=== PATIENT | female | born 1940 | race Caucasian/White ===

== ENCOUNTER 2017-06-06 05:57 | Inpatient (IN) | payer MEDICARE, BC ==
[~2017-06-06] VITALS: Ht 147.3 cm; Wt 59.0 kg
[2017-06-06] MEDS ORDERED: LEVO150T8 PO (06:26)
[2017-06-06] MEDS ORDERED: ACET-2154 PO (06:26)
[2017-06-06] MEDS ORDERED: LOPE2CAP PO (06:26)
[2017-06-06] MEDS ORDERED: AMLO5TAB2 PO (06:26)
[2017-06-06] MEDS ORDERED: HYDR-4077 PO (06:26)
[2017-06-06] MEDS ORDERED: QUET25TA PO ×2 (06:26)
[2017-06-06] MEDS ORDERED: PROP80CA PO (06:26)
[2017-06-06] MEDS ORDERED: TRAZ-144 PO (06:26)
[2017-06-06] MEDS ORDERED: CLIN300C11 PO (06:26)
[2017-06-06] MEDS ORDERED: GLIP5TAB13 PO (06:26)
[2017-06-06] MEDS ORDERED: NAPR500T3 PO (06:26)
[2017-06-06] MEDS ORDERED: TIMO5SOL11 OP (06:26)
[2017-06-06] MEDS ORDERED: METF10002 PO (06:26)
[2017-06-06] MEDS ORDERED: ESCI10TA55 PO (06:26)
[2017-06-06] MEDS ORDERED: VALS160T2 PO (06:26)
[2017-06-06] MEDS ORDERED: CHOL500062 PO (06:26)
[2017-06-06] MEDS ORDERED: TRAM50TA2 PO (06:26)
[2017-06-06 06:48] LABS: BASOPHILS # (AUTO) 0.1 K/uL (0.0-8.0); BASOPHILS % (AUTO) 0.7 % (0.0-2.0); EOSINOPHILS # (AUTO) 0.2 K/uL (0.0-0.7); EOSINOPHILS % (AUTO) 2.6 % (0.0-7.0); HEMATOCRIT 35.3 % (37-47); HEMOGLOBIN 11.4 G/DL (12.0-16.0); MEAN CORPUSCULAR HEMOGLOBIN 26.1 UUG (27.0-31.0); MEAN CORPUSCULAR HGB CONC 32 g/dL (32.0-37.0); MEAN CORPUSCULAR VOLUME 81.3 FL (81.0-99.0); MONOCYTES # (AUTO) 0.8 K/UL (0.1-1.30); MONOCYTES % (AUTO) 10.4 % (0.0-11.0); NEUTROPHILS # (AUTO) 5.2 K/UL (1.8-8.9); NEUTROPHILS % (AUTO) 72.3 % (38.5-71.5); PLATELET COUNT (AUTO) 178 K/UL (150-450); RED BLOOD CELL COUNT(AUTO) 4.34 MIL/UL (4.2-5.4); WHITE BLOOD COUNT (AUTO) 7.3 K/UL (4.0-11.2)
[2017-06-06 06:58] LABS: CARBON DIOXIDE 26 mmol/L (21-32); CHLORIDE 104 mmol/L (98-107); CREATININE 0.9 mg/dL (0.6-1.3); GLUCOSE 146 mg/dL (74-106); POTASSIUM 4.2 mmol/L (3.5-5.1); UREA NITROGEN, BLOOD 24 mg/dL (7-18)
--- NOTE | 2017-06-06 07:05 | NUR ---
Recieved Pt in bed, a/o x3,states pain in RT wrist is better.
[2017-06-06 07:07] LABS: ALANINE AMINOTRANSFERASE 18 U/L (14-59); ALKALINE PHOSPHATASE 52 U/L (50-136); ASPARTATE AMINOTRANSFERASE 17 U/L (15-37); BILIRUBIN,DIRECT 0.1 mg/dL (0.0-0.2); BILIRUBIN,TOTAL 0.5 mg/dL (0.2-1.0); TOTAL PROTEIN, SERUM 7.5 g/dL (6.4-8.2)
--- NOTE | 2017-06-06 07:39 | NUR ---
Dr Evans at the bedside for reeval.
[2017-06-06] MEDS ORDERED: ACETAMINOPHEN 325 MG TABLET PO ONE (07:45)
[2017-06-06] MEDS ORDERED: ACETAMINOPHEN ES 500 MG TABLET ONE (08:00)
--- NOTE | 2017-06-06 08:50 | NUR ---
MRSA COLLECTED AND SENT TO LAB. BELONGING LIST COMPLETED.
--- NOTE | 2017-06-06 09:03 | NUR ---
BEV CARL spoke to DR Bower(neuro surgeon).
[2017-06-06 09:50] VITALS: BP 144/70
--- NOTE | 2017-06-06 09:50 | NUR ---
received from ER per jina awake alert and oriented, with david bandage wrapped on right wrist, some swelling noted on fingers but warm to touch, kept elevated on pillow, sitting on chair, routine admission care rendered, tele applied, SR 78, initial assessment done
--- NOTE | 2017-06-06 12:00 | NUR ---
appetite fair, up to BR earlier and urine sent to lab
[2017-06-06] MEDS ORDERED: MORPHINE SULFATE 2 MG/1 ML DISP.SYRIN IV PRN (12:15)
[2017-06-06] MEDS ORDERED: QUETIAPINE FUMARATE 25 MG TABLET PO PRN (12:30)
[2017-06-06] MEDS ORDERED: ACETAMINOPHEN 325 MG TABLET PO PRN (12:30)
[2017-06-06] MEDS ORDERED: DEXTROSE 50% 50 ML DISP.SYRIN IV PRN (12:30)
[2017-06-06] MEDS ORDERED: ONDANSETRON 4 MG/2 ML VIAL IV PRN (12:30)
[2017-06-06] MEDS: AMLODIPINE 5 MG TABLET PO SCH ×2 (13:10→16:20)
[2017-06-06] MEDS: ESCITALOPRAM OXALATE 10 MG TABLET PO SCH (13:10)
[2017-06-06] MEDS: glipiZIDE 5 MG TABLET PO SCH (13:10)
[2017-06-06] MEDS: TRAMADOL HCL 50 MG TABLET PO PRN ×2 (13:11→22:12)
[2017-06-06 15:03] LABS: *BILIRUBIN,URIN NEGATIVE (NEGATIVE); *BLOOD, URINE NEGATIVE (NEGATIVE); *COLOR,URINE YELLOW (YELLOW); *KETONES,URINE NEGATIVE (NEGATIVE); *PROTEIN,URINE 2+ (NEGATIVE); *UROBILINOGEN,URINE 0.2 E.U./dl (NORMAL); LEUKOCYTE ESTERASE ,URINE TRACE (NEGATIVE); NITRITE, URINE NEGATIVE (NEGATIVE); PH,URINE 5.5 (5.0-8.0); UGLUCOSE TRACE (NEGATIVE)
[2017-06-06 16:10] VITALS: BP 153/71
[2017-06-06] MEDS: BLOOD SUGAR DIAGNOSTIC 1 EACH STRIP VI SCH ×2 (16:14→21:51)
[2017-06-06 16:20] LABS: *CLARITY,URINE HAZY (CLEAR)
[2017-06-06] MEDS: VALSARTAN 160 MG TABLET PO SCH (16:20)
[2017-06-06] MEDS: NAPROXEN 500 MG TABLET PO SCH (16:20)
[2017-06-06 16:23] LABS: BACTERIA,URINE MANY /HPF (NONE SEEN); SQUAMOUS EPITHELIAL CELL,UR FEW /HPF (NONE SEEN)
--- NOTE | 2017-06-06 16:24 | NUR ---
BS 192- refused sliding scale insulin sq
[2017-06-06] MEDS ORDERED: Medication Not On Formulary EA (Metformin Hcl 1,000 MG) PO SCH (17:00)
[2017-06-06] MEDS: METFORMIN HCL 500 MG TABLET PO SCH (17:29)
--- NOTE | 2017-06-06 17:41 | NUR ---
sitting on bedside chair, right arm elevated on pillow with david bandage- ice pack on, states pain lesser, all needs attended and met, medicated earlier with Seroquel for anxiety, 2dech and us carotid done earlier, refused DVT pumps at this time
[2017-06-06 20:00] VITALS: BP 126/59
--- NOTE | 2017-06-06 21:22 | NUR ---
PT'S ACCUCHECK READING 67. PT IS ALERT, IN NO ACUTE DISTRESS, NO C/O OF DISCOMFORT, NO S/S OF HYPOGLYCEMIA NOTED. GAVE PATIENT SNACKS AND JUICE. WILL REASSESS AND MONITOR.
[2017-06-06] MEDS: QUETIAPINE FUMARATE 25 MG TABLET PO SCH (21:24)
[2017-06-06] MEDS: TRAZODONE 50 MG TABLET PO SCH (21:25)
--- NOTE | 2017-06-06 21:50 | NUR ---
RECHECKED ACCUCHECK, BLOOD SUGAR READING 105. PT IS ALERT, NO RESPIRATORY DISTRESS. SAFETY MEASURES IN PLACE, CALL LIGHT WITHIN REACH, BED ALARM ON. WILL CONTINUE TO MONITOR.
[2017-06-06] MEDS ORDERED: CEFTRIAXONE 1 G in IV DEXTROSE 5% 50 ML IV SCH (23:00)
[2017-06-07] VITALS: BP 97/42
[2017-06-07] MEDS ORDERED: CEFTRIAXONE 1 G VIAL ONE (00:14)
[2017-06-07 04:00] VITALS: BP 162/75
--- NOTE | 2017-06-07 04:25 | NUR ---
PT KEPT NPO AFTER MIDNIGHT FOR PLANNED RIGHT WRIST SURGERY. CALLED DR. TA FOR IVF ORDER. NEW ORDERS TAKEN, READ BACK DONE AND CARRIED OUT.
[2017-06-07] MEDS: IV NS 1000 ML 1,000 ML IV PRN (04:54)
--- NOTE | 2017-06-07 06:00 | NUR ---
PT SLEPT WELL, IN NO ACUTE DISTRESS. ANTIBIOTIC IV ADMINISTERED ORDERED. ASSISTED PATIENT WITH TOILETING NEEDS. AMBULATES W/UNSTEADY GAIT AND W/ASSISTANCE TO THE BATHROOM. CALL LIGHT WITHIN REACH, BED ALARM ON. WILL CONTINUE TO MONITOR.
[2017-06-07 06:43] LABS: THYROID STIMULATING HORMONE 0.307 mIU/mL (0.358-3.740)
[2017-06-07 06:54] LABS: IRON, SERUM 39 ug/dL (50-175)
[2017-06-07 07:00] LABS: ALANINE AMINOTRANSFERASE 54 U/L (14-59); ALKALINE PHOSPHATASE 97 U/L (50-136); ASPARTATE AMINOTRANSFERASE 94 U/L (15-37); BILIRUBIN,TOTAL 0.4 mg/dL (0.2-1.0); CARBON DIOXIDE 26 mmol/L (21-32); CHLORIDE 104 mmol/L (98-107); CHOLESTEROL 181 mg/dL (<200); CREATININE 1.1 mg/dL (0.6-1.3); GLUCOSE 93 mg/dL (74-106); HDL CHOLESTEROL 48 mg/dL (40-60); MAGNESIUM 1.3 mg/dL (1.8-2.4); PHOSPHOROUS 4.7 mg/dL (2.5-4.9); POTASSIUM 4.1 mmol/L (3.5-5.1); TOTAL PROTEIN, SERUM 7.1 g/dL (6.4-8.2); TRIGLYCERIDES 99 MG/DL (30-150); UREA NITROGEN, BLOOD 33 mg/dL (7-18)
[2017-06-07] MEDS: PANTOPRAZOLE SODIUM 40 MG TABLET.DR PO SCH (07:00)
[2017-06-07] MEDS: LEVOTHYROXINE SODIUM 150 MCG TABLET PO SCH (07:00)
[2017-06-07] MEDS: PROPRANOLOL HCL 40 MG TABLET PO SCH ×3 (07:03→22:14)
[2017-06-07] MEDS: BLOOD SUGAR DIAGNOSTIC 1 EACH STRIP VI SCH ×4 (07:03→22:00)
[2017-06-07 07:15] LABS: BASOPHILS % (AUTO) 0.1 % (0.0-2.0); EOSINOPHILS # (AUTO) 0.2 K/uL (0.0-0.7); EOSINOPHILS % (AUTO) 2.6 % (0.0-7.0); HEMATOCRIT 34.1 % (37-47); HEMOGLOBIN 11.1 G/DL (12.0-16.0); LYMPHOCYTES % (AUTO) 15.4 % (20.5-51.5); MEAN CORPUSCULAR HGB CONC 33 g/dL (32.0-37.0); MEAN CORPUSCULAR VOLUME 82.7 FL (81.0-99.0); MONOCYTES # (AUTO) 0.7 K/UL (0.1-1.30); MONOCYTES % (AUTO) 11.4 % (0.0-11.0); NEUTROPHILS # (AUTO) 4.4 K/UL (1.8-8.9); NEUTROPHILS % (AUTO) 70.5 % (38.5-71.5); PLATELET COUNT (AUTO) 171 K/UL (150-450); RED BLOOD CELL COUNT(AUTO) 4.13 MIL/UL (4.2-5.4); WHITE BLOOD COUNT (AUTO) 6.3 K/UL (4.0-11.2)
[2017-06-07] MEDS: METFORMIN HCL 500 MG TABLET PO SCH ×2 (08:00→17:39)
--- NOTE | 2017-06-07 08:00 | NUR ---
Awake, alert, oriented x 4. Right arm with splint. Assisted to the bathroom. am care done then sitting on the chair. IVF infusing. NPO reinstructed and maintained.
[2017-06-07] MEDS: MORPHINE SULFATE 2 MG/1 ML DISP.SYRIN IV PRN ×2 (08:59→16:36)
--- NOTE | 2017-06-07 08:59 | NUR ---
Complained of pain right arm, explained about NPO, agreed with Morphine IV, given.
[2017-06-07] MEDS: CHOLECALCIFEROL 1,000 UNIT TABLET PO SCH (09:00)
[2017-06-07] MEDS: VALSARTAN 160 MG TABLET PO SCH ×2 (09:00→16:36)
[2017-06-07] MEDS: ESCITALOPRAM OXALATE 10 MG TABLET PO SCH (09:00)
[2017-06-07] MEDS: TIMOLOL MALEATE XE 0.5% OPHT 5 ML BOTTLE EACHEYE SCH (09:00)
[2017-06-07] MEDS: AMLODIPINE 5 MG TABLET PO SCH ×2 (09:00→16:35)
[2017-06-07] MEDS: NAPROXEN 500 MG TABLET PO SCH ×2 (09:00→16:33)
[2017-06-07] MEDS ORDERED: Medication Not On Formulary EA (Cholecalciferol (Vitamin D3) (Vitamin D3) 1,000 UNIT) PO SCH (09:00)
[2017-06-07] MEDS: glipiZIDE 5 MG TABLET PO SCH (09:00)
[2017-06-07 11:34] VITALS: BP 140/90
[2017-06-07] MEDS ORDERED: POLYMYXIN B SULFATE 500,000 UNITS, BACITRACIN 50,000 UNITS, NORMAL SALINE 20 ML MC ONE ×6 (12:30→15:15)
--- NOTE | 2017-06-07 14:00 | NUR ---
Called Dr. Blum, with orders for ORIF right radius. Consent signed by patient.
--- NOTE | 2017-06-07 14:52 | NUR ---
To OR by bed, with eyeglasses and bilateral hearing aids on.
[2017-06-07] MEDS ORDERED: BUPIVACAINE 0.25% 30 ML VIAL ONE (15:18)
[2017-06-07 15:31] VITALS: BP 152/77
--- NOTE | 2017-06-07 16:30 | NUR ---
Transferred back to room. Surgery not done, rescheduled. Vital signs taken and recorded. IVF resumed. Early dinner called. Due medications given. Prefers to sit on the chair
[2017-06-07] MEDS: MAGNESIUM SULFATE/D5W 100 ML IV SCH ×4 (16:33→23:15)
--- NOTE | 2017-06-07 18:26 | NUR ---
Pain relieved. With fair appetite. Magnesium IV infusing. Endorsed for further care
[2017-06-07 19:52] VITALS: BP 130/54
[2017-06-07] MEDS: QUETIAPINE FUMARATE 25 MG TABLET PO SCH (21:59)
[2017-06-07] MEDS: TRAZODONE 50 MG TABLET PO SCH (21:59)
[2017-06-07] MEDS: CEFTRIAXONE 1 G in IV DEXTROSE 5% 50 ML IV SCH (22:02)
[2017-06-07] MEDS: INSULIN REGULAR, HUMAN 300 UNIT/3 ML VIAL SQ PRN (22:25)
[2017-06-08] MEDS: IV NS 1000 ML 1,000 ML IV PRN ×2 (03:55→21:20)
[2017-06-08 04:12] VITALS: BP 122/61
[2017-06-08] MEDS: PROPRANOLOL HCL 40 MG TABLET PO SCH ×3 (05:08→21:18)
[2017-06-08] MEDS: MORPHINE SULFATE 2 MG/1 ML DISP.SYRIN IV PRN ×2 (05:16→10:11)
--- NOTE | 2017-06-08 06:27 | NUR ---
PT SLEPT WELL, IN NO ACUTE DISTRESS, SOB, CHEST PAIN. IVF RUNNING, NO INFILTRATION NOTED. IV ANTIBIOTICS ADMINISTERED ORDERED, NO ADVERSE REACTION. ACCUCHECKS ORDERED, NO S/S OF HYPO/HYPERGLYCEMIA NOTED. SAFETY MEASURES IN PLACE, CALL LIGHT WITHIN REACH, BED ALARM ON. WILL CONTINUE TO MONITOR.
[2017-06-08] MEDS: BLOOD SUGAR DIAGNOSTIC 1 EACH STRIP VI SCH ×4 (06:36→21:27)
[2017-06-08 06:47] LABS: BASOPHILS % (AUTO) 0.8 % (0.0-2.0); EOSINOPHILS # (AUTO) 0.2 K/uL (0.0-0.7); HEMATOCRIT 34.2 % (37-47); HEMOGLOBIN 11.2 G/DL (12.0-16.0); LYMPHOCYTES # (AUTO) 0.7 K/UL (0.8-4.8); LYMPHOCYTES % (AUTO) 17.6 % (20.5-51.5); MEAN CORPUSCULAR HEMOGLOBIN 26.8 UUG (27.0-31.0); MEAN CORPUSCULAR HGB CONC 33 g/dL (32.0-37.0); MONOCYTES # (AUTO) 0.5 K/UL (0.1-1.30); NEUTROPHILS # (AUTO) 2.8 K/UL (1.8-8.9); NEUTROPHILS % (AUTO) 64.6 % (38.5-71.5); PLATELET COUNT (AUTO) 163 K/UL (150-450); RED BLOOD CELL COUNT(AUTO) 4.16 MIL/UL (4.2-5.4); WHITE BLOOD COUNT (AUTO) 4.2 K/UL (4.0-11.2)
[2017-06-08 06:57] LABS: ALANINE AMINOTRANSFERASE 678 U/L (14-59); ALKALINE PHOSPHATASE 252 U/L (50-136); ASPARTATE AMINOTRANSFERASE 649 U/L (15-37); BILIRUBIN,TOTAL 0.4 mg/dL (0.2-1.0); CARBON DIOXIDE 25 mmol/L (21-32); CHLORIDE 105 mmol/L (98-107); CREATININE 0.8 mg/dL (0.6-1.3); GLUCOSE 123 mg/dL (74-106); MAGNESIUM 2.6 mg/dL (1.8-2.4); PHOSPHOROUS 4.5 mg/dL (2.5-4.9); POTASSIUM 4.2 mmol/L (3.5-5.1); TOTAL PROTEIN, SERUM 7.2 g/dL (6.4-8.2); UREA NITROGEN, BLOOD 29 mg/dL (7-18)
[2017-06-08] MEDS: LEVOTHYROXINE SODIUM 150 MCG TABLET PO SCH (07:00)
[2017-06-08] MEDS: PANTOPRAZOLE SODIUM 40 MG TABLET.DR PO SCH (07:00)
[2017-06-08] MEDS: METFORMIN HCL 500 MG TABLET PO SCH ×2 (08:00→17:36)
--- NOTE | 2017-06-08 08:00 | NUR ---
Sleeping, comfortable. IVF infusing. NPO maintained.
[2017-06-08] MEDS: ESCITALOPRAM OXALATE 10 MG TABLET PO SCH (08:46)
[2017-06-08] MEDS: AMLODIPINE 5 MG TABLET PO SCH ×2 (08:46→16:01)
[2017-06-08] MEDS: VALSARTAN 160 MG TABLET PO SCH ×2 (08:46→16:01)
[2017-06-08] MEDS: NAPROXEN 500 MG TABLET PO SCH ×2 (08:46→17:36)
[2017-06-08] MEDS: glipiZIDE 5 MG TABLET PO SCH (08:46)
[2017-06-08] MEDS: CHOLECALCIFEROL 1,000 UNIT TABLET PO SCH (08:47)
[2017-06-08] MEDS: TIMOLOL MALEATE XE 0.5% OPHT 5 ML BOTTLE EACHEYE SCH (10:12)
[2017-06-08 11:56] VITALS: BP 169/61
[2017-06-08] MEDS ORDERED: POLYMYXIN B SULFATE 500,000 UNITS, BACITRACIN 50,000 UNITS, NORMAL SALINE 20 ML MC ONE ×3 (12:30)
--- NOTE | 2017-06-08 12:30 | NUR ---
To OR by bed.
[2017-06-08] MEDS ORDERED: FENTANYL CITRATE 100 MCG/2 ML AMPUL ONE (12:52)
[2017-06-08] MEDS ORDERED: BUPIVACAINE 0.25% 30 ML VIAL ONE (13:46)
[2017-06-08] MEDS ORDERED: ONDANSETRON 4 MG/2 ML VIAL ONE (15:05)
[2017-06-08] MEDS ORDERED: HYDROMORPHONE 1 MG/1 ML DISP.SYRIN ONE (15:05)
--- NOTE | 2017-06-08 15:49 | NUR ---
Received from recovery by bed s/p ORIF distal right radius. RUE with dressing dry and intact supported with sling and elevated over pillow. Able to move fingers,warm touch, denies numbness/tingling. Vital signs taken and recorded. IVF infusing. Noted elevated BP, will give BP medications
[2017-06-08 15:50] VITALS: BP 180/72
--- NOTE | 2017-06-08 16:38 | NUR ---
Assisted to the bathroom, voided freely.
[2017-06-08 16:41] VITALS: BP 166/64
--- NOTE | 2017-06-08 18:08 | NUR ---
Sitting on the chair eating dinner. Kept dry and comfortable
[2017-06-08 19:00] VITALS: BP 164/63
--- NOTE | 2017-06-08 20:00 | NUR ---
NSG: PT RECEIVED SITTING ON THE CHAIR. DENIES DISCOMFORT AT THIS TIME. RIGHT ARM WITH CAST, WEARS SLING. ON CONT IVF. EDUCATED REGARDING FALL PRECAUTION. CALL LIGHT WITHIN REACH.
--- NOTE | 2017-06-08 20:45 | NUR ---
NSG: PT ASSISTED BACK TO BED.
[2017-06-08] MEDS: TRAZODONE 50 MG TABLET PO SCH (21:16)
[2017-06-08] MEDS: QUETIAPINE FUMARATE 25 MG TABLET PO SCH (21:17)
[2017-06-08] MEDS: CEFTRIAXONE 1 G in IV DEXTROSE 5% 50 ML IV SCH (21:19)
[2017-06-08] MEDS: MORPHINE SULFATE 4 MG/1 ML DISP.SYRIN IV PRN (21:23)
--- NOTE | 2017-06-08 21:33 | NUR ---
nsg: acu ck is 139, pt refused insulin coverage.
[2017-06-08] MEDS ORDERED: LIDOCAINE-MPF 2% 5 ML VIAL MC ONE (21:42)
[2017-06-08] MEDS ORDERED: ONDANSETRON 4 MG/2 ML VIAL IV ONE (21:42)
[2017-06-08] MEDS ORDERED: CEFAZOLIN 1 G VIAL MC ONE (21:42)
[2017-06-08] MEDS ORDERED: IV LACTATED RINGERS SOLUTION 1,000 ML BAG IV ONE (21:42)
[2017-06-08] MEDS ORDERED: PROPOFOL 200 MG/20 ML BOTTLE IV ONE (21:42)
[2017-06-08] MEDS ORDERED: EPHEDRINE SULFATE 50 MG/ML AMPUL MC ONE (21:42)
[2017-06-08] MEDS ORDERED: CLONIDINE HCL 0.1 MG TABLET PO PRN (22:30)
--- NOTE | 2017-06-09 00:48 | NUR ---
NSG: Patient alert and oriented x4. Able to make needs known. No acute distress noted. Breathing even and unlabored with normal respirations. Pt has right arm cast, no tingling/numbness noted. Capillary refill WNL. Complained of right wrist pain, medicated with morphine. Relief noted. Will continue to monitor.
[2017-06-09 04:00] VITALS: BP 127/64
[2017-06-09 06:35] VITALS: BP 154/75
[2017-06-09 06:42] LABS: ALANINE AMINOTRANSFERASE 727 U/L (14-59); ALKALINE PHOSPHATASE 282 U/L (50-136); ASPARTATE AMINOTRANSFERASE 471 U/L (15-37); BILIRUBIN,TOTAL 0.7 mg/dL (0.2-1.0); CARBON DIOXIDE 24 mmol/L (21-32); CHLORIDE 105 mmol/L (98-107); CREATININE 0.7 mg/dL (0.6-1.3); GLUCOSE 134 mg/dL (74-106); MAGNESIUM 1.4 mg/dL (1.8-2.4); PHOSPHOROUS 3.3 mg/dL (2.5-4.9); POTASSIUM 4.3 mmol/L (3.5-5.1); TOTAL PROTEIN, SERUM 6.9 g/dL (6.4-8.2); UREA NITROGEN, BLOOD 17 mg/dL (7-18)
[2017-06-09] MEDS: PANTOPRAZOLE SODIUM 40 MG TABLET.DR PO SCH (06:51)
[2017-06-09] MEDS: PROPRANOLOL HCL 40 MG TABLET PO SCH ×3 (06:51→21:21)
[2017-06-09] MEDS: LEVOTHYROXINE SODIUM 150 MCG TABLET PO SCH (06:51)
[2017-06-09] MEDS: MORPHINE SULFATE 4 MG/1 ML DISP.SYRIN IV PRN (06:52)
[2017-06-09 06:56] LABS: BASOPHILS % (AUTO) 0.6 % (0.0-2.0); EOSINOPHILS # (AUTO) 0.2 K/uL (0.0-0.7); EOSINOPHILS % (AUTO) 3.5 % (0.0-7.0); HEMATOCRIT 32.2 % (37-47); HEMOGLOBIN 10.6 G/DL (12.0-16.0); LYMPHOCYTES # (AUTO) 0.8 K/UL (0.8-4.8); LYMPHOCYTES % (AUTO) 15.9 % (20.5-51.5); MEAN CORPUSCULAR HGB CONC 33 g/dL (32.0-37.0); MEAN CORPUSCULAR VOLUME 81.8 FL (81.0-99.0); MONOCYTES # (AUTO) 0.7 K/UL (0.1-1.30); MONOCYTES % (AUTO) 14.4 % (0.0-11.0); NEUTROPHILS # (AUTO) 3.1 K/UL (1.8-8.9); NEUTROPHILS % (AUTO) 65.6 % (38.5-71.5); RED BLOOD CELL COUNT(AUTO) 3.94 MIL/UL (4.2-5.4); WHITE BLOOD COUNT (AUTO) 4.8 K/UL (4.0-11.2)
[2017-06-09] MEDS: BLOOD SUGAR DIAGNOSTIC 1 EACH STRIP VI SCH ×4 (07:06→20:41)
[2017-06-09 07:19] LABS: PLATELET COUNT (AUTO) 158 K/UL (150-450)
--- NOTE | 2017-06-09 08:00 | NUR ---
Received patient awake in bed, verbally responsive, coherent, not in any form of acute distress. She denies any pain or discomfort at this time. Call light placed within reach.
[2017-06-09] MEDS: glipiZIDE 5 MG TABLET PO SCH (09:24)
[2017-06-09] MEDS: NAPROXEN 500 MG TABLET PO SCH ×2 (09:24→17:49)
[2017-06-09] MEDS: VALSARTAN 160 MG TABLET PO SCH ×2 (09:25→17:50)
[2017-06-09] MEDS: AMLODIPINE 5 MG TABLET PO SCH ×2 (09:25→17:49)
[2017-06-09] MEDS: CHOLECALCIFEROL 1,000 UNIT TABLET PO SCH (09:26)
[2017-06-09] MEDS: METFORMIN HCL 500 MG TABLET PO SCH ×2 (09:26→17:50)
[2017-06-09] MEDS: ESCITALOPRAM OXALATE 10 MG TABLET PO SCH (09:26)
[2017-06-09] MEDS: TIMOLOL MALEATE XE 0.5% OPHT 5 ML BOTTLE EACHEYE SCH (09:27)
[2017-06-09] MEDS ORDERED: MAGNESIUM OXIDE 400 MG TABLET PO ONE (09:30)
--- NOTE | 2017-06-09 10:00 | NUR ---
Assisted patient to the bathroom and she voided freely.
[2017-06-09 11:16] VITALS: BP 165/54
[2017-06-09] MEDS: IV NS 1000 ML 1,000 ML IV PRN (11:43)
[2017-06-09] MEDS: HYDROCODONE/APAP 10-325 MG TABLET PO PRN (11:49)
--- NOTE | 2017-06-09 11:50 | NUR ---
Patient complained of 9/10 pain on the right wrist, offered morphine IV but patient refused and patient preferred to take Warner tab.
[2017-06-09 16:04] VITALS: BP 157/61
--- NOTE | 2017-06-09 17:30 | NUR ---
Patient noted with BS at 55, she remains alert, verbally responsive, coherent, not in any form of acute distress. She denies any discomfort. Provided orange juice and repeat BS done 72. Notified MD with no new order at this time.
[2017-06-09 19:00] VITALS: BP 144/69
--- NOTE | 2017-06-09 19:00 | NUR ---
RECEIVED PATIENT IN BED, NO SOB NO CHEST PAIN, NO COMPLAIN OF PAIN, NO COUGHING NOTED, ASSISTED WITH TOILETING, CONT TO MONITOR.
[2017-06-09] MEDS: TRAZODONE 50 MG TABLET PO SCH (20:31)
[2017-06-09] MEDS: QUETIAPINE FUMARATE 25 MG TABLET PO SCH (20:32)
[2017-06-09] MEDS: CEFTRIAXONE 1 G in IV DEXTROSE 5% 50 ML IV SCH (20:41)
[2017-06-09] MEDS: INSULIN REGULAR, HUMAN 300 UNIT/3 ML VIAL SQ PRN (20:44)
[2017-06-10] MEDS: IV NS 1000 ML 1,000 ML IV PRN (01:07)
[2017-06-10 04:58] VITALS: BP 150/73
[2017-06-10] MEDS: BLOOD SUGAR DIAGNOSTIC 1 EACH STRIP VI SCH ×4 (05:47→20:11)
[2017-06-10] MEDS: LEVOTHYROXINE SODIUM 150 MCG TABLET PO SCH (05:50)
[2017-06-10] MEDS: PANTOPRAZOLE SODIUM 40 MG TABLET.DR PO SCH (05:51)
[2017-06-10] MEDS: PROPRANOLOL HCL 40 MG TABLET PO SCH ×2 (06:00→14:01)
--- NOTE | 2017-06-10 06:42 | NUR ---
PATIENT SLEPT MOST OF THE NIGHT, NO SOB NO CHEST PAIN, R HAND/ARM CAST INTACT, SKIN COLOR WNL, NO COMPLAIN OF PAIN AT THIS TIME, ASSISTED WITH TOILETING, CONTINENT OF BOWEL AND BLADDER, CONT TO MONITOR. BS 99.
[2017-06-10 09:00] VITALS: BP 156/78
--- NOTE | 2017-06-10 09:00 | NUR ---
ASSUMED CARE OF PT, HEAD TO TOE DONE, C/O PAIN 06/14-NORCO GIVEN ORDERED. FALL PRECAUTIONS IN PLACE. WILL CONTINUE TO MONITOR.
[2017-06-10] MEDS: ESCITALOPRAM OXALATE 10 MG TABLET PO SCH (09:14)
[2017-06-10] MEDS: METFORMIN HCL 500 MG TABLET PO SCH ×2 (09:14→17:32)
[2017-06-10] MEDS: NAPROXEN 500 MG TABLET PO SCH ×2 (09:14→17:32)
[2017-06-10] MEDS: VALSARTAN 160 MG TABLET PO SCH ×2 (09:15→17:32)
[2017-06-10] MEDS: CHOLECALCIFEROL 1,000 UNIT TABLET PO SCH (09:15)
[2017-06-10] MEDS: AMLODIPINE 5 MG TABLET PO SCH ×2 (09:15→17:32)
[2017-06-10] MEDS: glipiZIDE 5 MG TABLET PO SCH (09:15)
[2017-06-10] MEDS: HYDROCODONE/APAP 10-325 MG TABLET PO PRN ×2 (09:16→18:47)
[2017-06-10] MEDS: TIMOLOL MALEATE XE 0.5% OPHT 5 ML BOTTLE EACHEYE SCH (09:23)
[2017-06-10 11:41] VITALS: BP 159/69
[2017-06-10] MEDS: INSULIN REGULAR, HUMAN 300 UNIT/3 ML VIAL SQ PRN ×2 (12:45→17:33)
[2017-06-10 16:07] VITALS: BP 136/52
[2017-06-10] MEDS ORDERED: HYDR-4076 PO (16:24)
[2017-06-10] MEDS ORDERED: ACET325T53 PO (16:24)
[2017-06-10] MEDS ORDERED: PANT40TA2 PO (16:24)
[2017-06-10] MEDS ORDERED: DEXT50DI8 IV (16:24)
[2017-06-10] MEDS ORDERED: Blood Sugar Diagnostic VI (16:24)
[2017-06-10] MEDS ORDERED: HYDR-3326 PO (16:24)
[2017-06-10] MEDS ORDERED: GLIP5TAB13 PO (16:24)
[2017-06-10] MEDS ORDERED: CLON0.1T14 PO (16:24)
[2017-06-10] MEDS ORDERED: MULT1TAB73 PO (16:24)
[2017-06-10 17:32] VITALS: BP 153/70
--- NOTE | 2017-06-10 19:51 | NUR ---
RN HAND OFF GIVEN TO INDRA. PT IS IN STABLE CONDITION. WAITING TO BE TRANSFERRED TO REHAB
[2017-06-10] MEDS: CEFTRIAXONE 1 G in IV DEXTROSE 5% 50 ML IV SCH (20:10)
[2017-06-10] MEDS: TRAZODONE 50 MG TABLET PO SCH (20:11)
[2017-06-10] MEDS: QUETIAPINE FUMARATE 25 MG TABLET PO SCH (20:11)
--- NOTE | 2017-06-10 21:30 | NUR ---
PT TRANSFERRED TO ACUTE REHAB. PT ALERT, VS STABLE, AFEBRILE. BELONGING LIST RECORDED AND ACCOUNTED FOR, SIGNED AND ACKNOWLEDGED BY PT. D/C DOCUMENTATION SENT WITH PATIENT. REPORT GIVEN TO ARUN HEARN.
[2017-06-15 10:34] LABS: CARBON DIOXIDE 29 mmol/L (21-32); CHLORIDE 101 mmol/L (98-107); CREATININE 0.9 mg/dL (0.6-1.3); GLUCOSE 161 mg/dL (74-106); UREA NITROGEN, BLOOD 30 mg/dL (7-18)
[2017-06-15 10:51] LABS: BASOPHILS % (AUTO) 0.4 % (0.0-2.0); EOSINOPHILS # (AUTO) 0.2 K/uL (0.0-0.7); EOSINOPHILS % (AUTO) 2.2 % (0.0-7.0); HEMATOCRIT 36.8 % (37-47); LYMPHOCYTES # (AUTO) 1.4 K/UL (0.8-4.8); MEAN CORPUSCULAR HEMOGLOBIN 26.6 UUG (27.0-31.0); MEAN CORPUSCULAR HGB CONC 33 g/dL (32.0-37.0); MEAN CORPUSCULAR VOLUME 81.8 FL (81.0-99.0); MONOCYTES # (AUTO) 0.9 K/UL (0.1-1.30); MONOCYTES % (AUTO) 9.8 % (0.0-11.0); NEUTROPHILS # (AUTO) 6.3 K/UL (1.8-8.9); NEUTROPHILS % (AUTO) 71.6 % (38.5-71.5); PLATELET COUNT (AUTO) 253 K/UL (150-450)
[2017-06-15 11:21] LABS: WHITE BLOOD COUNT (AUTO) 8.8 K/UL (4.0-11.2)
== END 2017-06-10 21:43 | DRG 982 ==
LOC: EDBD → ER 06:04 → TELE 09:27 → MED 06-07 23:58
PROVIDERS: ADMIT Internal Medicine; ATTEND Internal Medicine
PROC: 0PSH04Z Reposition Right Radius with Internal Fixation Device, Open Approach (ICD-10-PCS; principal; 2017-06-08 13:16)
DX: G90.8 Other disorders of autonomic nervous system (principal); M80.831A Other osteoporosis with current pathological fracture, right forearm, initial encounter for fracture; T85.01XA Breakdown (mechanical) of ventricular intracranial (communicating) shunt, initial encounter; N39.0 Urinary tract infection, site not specified; D68.59 Other primary thrombophilia; I50.32 Chronic diastolic (congestive) heart failure; R55 Syncope and collapse; I11.0 Hypertensive heart disease with heart failure; E89.0 Postprocedural hypothyroidism; Z91.81 History of falling; Z79.899 Other long term (current) drug therapy; B96.89 Other specified bacterial agents as the cause of diseases classified elsewhere; Z86.011 Personal history of benign neoplasm of the brain; Z96.641 Presence of right artificial hip joint; Z87.891 Personal history of nicotine dependence; Z90.49 Acquired absence of other specified parts of digestive tract; Z74.09 Other reduced mobility; E11.65 Type 2 diabetes mellitus with hyperglycemia; Z79.84 Long term (current) use of oral hypoglycemic drugs; R26.81 Unsteadiness on feet; Z98.2 Presence of cerebrospinal fluid drainage device; R74.0 Nonspecific elevation of levels of transaminase and lactic acid dehydrogenase [LDH]; F32.9 Major depressive disorder, single episode, unspecified; D50.9 Iron deficiency anemia, unspecified
CPT/HCPCS: 36415; 70030-TC; 70450; 71010; 73100; 73110; 76000; 82306; 83550; 83605; 83690; 83735; 84100; 84443; 85025; 85730; 87040; 87077; 87086; 93005; 93307; 93880; 95819; 97116; 97161; 97165; 97530; 97535; A4663; J0690; J0696; J1170; J1815; J2270; J2405; J3010; J3475; J3490; J3590; J7030; J7040; J7060; J7120

== ENCOUNTER 2017-06-10 23:10 | Inpatient (IN) | payer MEDICARE, BC ==
[~2017-06-10] VITALS: Ht 147.3 cm; Wt 59.0 kg
--- NOTE | 2017-06-10 21:25 | NUR ---
PATIENT ADMITTED IN ACUTE REHAB UNDER THE CARE OF Rosalie MCCARTNEY, BELONGINGS LIST DONE, ALERT, ORIENTED, NO SOB NO CHEST PAIN, NO COMPLAIN OF PAIN, RIGHT ARM WITH CAST ON THE SLING, RIGHT ARM WITH SWELLING AND BRUISES, ALSO BILATERAL FEET WITH PITTING EDEMA, CALL LIGHT WITHIN REACH, KEPT COMFORTABLE.
[~2017-06-10 23:10] MED LIST: ACET-2154 PO; ACET325T53 PO; AMLO5TAB2 PO; Blood Sugar Diagnostic VI; CHOL500062 PO; CLIN300C11 PO; CLON0.1T14 PO; DEXT50DI8 IV; ESCI10TA55 PO; GLIP5TAB13 PO; HYDR-3326 PO; HYDR-4076 PO; HYDR-4077 PO; LEVO150T8 PO; LOPE2CAP PO; METF10002 PO; MULT1TAB73 PO; NAPR500T3 PO; PANT40TA2 PO; PROP80CA PO; QUET25TA PO; TIMO5SOL11 OP; TRAM50TA2 PO; TRAZ-144 PO; VALS160T2 PO
[2017-06-11 00:19] VITALS: BP 144/72
[2017-06-11] MEDS ORDERED: DEXTROSE 50% 50 ML DISP.SYRIN IV PRN ×3 (04:00→10:45)
[2017-06-11] MEDS: BLOOD SUGAR DIAGNOSTIC 1 EACH STRIP VI SCH ×4 (05:58→20:41)
--- NOTE | 2017-06-11 06:54 | NUR ---
PATIENT SLEPT MOST OF THE NIGHT, NO SOB NO CHEST PAIN, COMPLAIN OF MILD PAIN OF R HAND, ASSISTED WITH TOILETING, SLING IN PLACE, CONT TO MONITOR.
[2017-06-11 08:00] VITALS: BP 167/76
--- NOTE | 2017-06-11 08:00 | NUR ---
Received patient awake, up on the chair, alert, verbally responsive, able to make needs known, not in any form of acute distress. She denies any pain or discomfort at this time. Call light placed within reach. Assisted to her needs.
[2017-06-11] MEDS ORDERED: hydrALAZINE HCL 25 MG TABLET PO PRN (10:45)
[2017-06-11] MEDS ORDERED: INSULIN REGULAR, HUMAN 300 UNIT/3 ML VIAL SQ PRN (10:45)
[2017-06-11] MEDS ORDERED: ACETAMINOPHEN 325 MG TABLET PO PRN (10:45)
[2017-06-11] MEDS ORDERED: CLONIDINE HCL 0.1 MG TABLET PO PRN (10:45)
[2017-06-11] MEDS ORDERED: QUETIAPINE FUMARATE 25 MG TABLET PO PRN (10:45)
[2017-06-11] MEDS ORDERED: BLOOD SUGAR DIAGNOSTIC 1 EACH STRIP VI SCH (11:30)
[2017-06-11] MEDS: glipiZIDE 5 MG TABLET PO SCH ×2 (11:59→18:15)
[2017-06-11] MEDS: HYDROCODONE/APAP 5-325MG TABLET PO PRN ×2 (12:00→18:36)
--- NOTE | 2017-06-11 12:00 | NUR ---
Blood sugar checked 144 but patient refused receive her insulin sliding scale. Explained risks and benefits but patient still refused.
[2017-06-11] MEDS: TIMOLOL MALEATE XE 0.5% OPHT 5 ML BOTTLE EACHEYE SCH (12:01)
[2017-06-11] MEDS ORDERED: PROPRANOLOL LA 80 MG CAP.SA.24H PO SCH (13:00)
[2017-06-11] MEDS: PROPRANOLOL HCL 40 MG TABLET PO SCH ×2 (13:16→18:16)
[2017-06-11] MEDS ORDERED: Medication Not On Formulary EA (Metformin Hcl 1,000 MG) PO SCH (17:00)
--- NOTE | 2017-06-11 17:30 | NUR ---
Blood sugar checked 157 and again refused her insulin sliding scale. Explained risks and benefits but still patient refused. Notified Dr. Henriquez regarding patient been refusing with no new order, just document.
[2017-06-11] MEDS: METFORMIN HCL 500 MG TABLET PO SCH (18:14)
[2017-06-11] MEDS: VALSARTAN 160 MG TABLET PO SCH (18:15)
[2017-06-11] MEDS: AMLODIPINE 5 MG TABLET PO SCH (18:16)
--- NOTE | 2017-06-11 19:30 | NUR ---
Patient received sitting up in bed. Alert and verbally responsive. Able to make needs known. Denies any pain and discomfort. No acute distress. No SOB. Right cast on right forearm. IV site on Left upper arm. Patent and intact. No s/s of swelling or bleeding. Patient assisted to bathroom. Tolerated well. All needs attended to promptly. Call light within reach. Will continue to monitor.
[2017-06-11] MEDS: TRAZODONE 50 MG TABLET PO SCH (20:37)
[2017-06-11] MEDS: QUETIAPINE FUMARATE 25 MG TABLET PO SCH (20:37)
--- NOTE | 2017-06-11 20:43 | NUR ---
Blood sugar checked. Resulted at 144. Patient refused sliding scale. Verbalized it is not good for her. Dr. Henriquez aware that patient is refusing sliding scale. No s/s of hyperglycemia. No acute distress. All needs attended to promptly. Call light within reach. Will continue to monitor.
[2017-06-11 20:48] VITALS: BP 159/79
[2017-06-12] MEDS: HYDROCODONE/APAP 5-325MG TABLET PO PRN ×2 (03:48→18:16)
[2017-06-12] MEDS: LEVOTHYROXINE SODIUM 150 MCG TABLET PO SCH (07:01)
[2017-06-12] MEDS: PANTOPRAZOLE SODIUM 40 MG TABLET.DR PO SCH (07:01)
[2017-06-12] MEDS: BLOOD SUGAR DIAGNOSTIC 1 EACH STRIP VI SCH ×4 (07:04→20:56)
[2017-06-12 07:30] VITALS: BP 145/74
--- NOTE | 2017-06-12 07:41 | NUR ---
Patient slept comfortably throughout the night. No acute distress noted. No SOB. BS 113. No coverage needed. 7am meds given. Endorsed to AM shift. Kept clean and dry. All needs attended to promptly. Call light within reach. Will continue to monitor.
[2017-06-12] MEDS: METFORMIN HCL 500 MG TABLET PO SCH ×2 (08:00→18:10)
[2017-06-12 08:06] VITALS: BP 142/82
[2017-06-12] MEDS ORDERED: Medication Not On Formulary EA (Multivitamins (Multivitamin) 1 EACH) PO SCH (09:00)
[2017-06-12] MEDS ORDERED: Medication Not On Formulary EA (Cholecalciferol (Vitamin D3) (Vitamin D3) 1,000 UNIT) PO SCH (09:00)
[2017-06-12] MEDS: ESCITALOPRAM OXALATE 10 MG TABLET PO SCH (09:45)
[2017-06-12] MEDS: glipiZIDE 5 MG TABLET PO SCH ×2 (09:46→18:12)
[2017-06-12] MEDS: CHOLECALCIFEROL 1,000 UNIT TABLET PO SCH (09:46)
[2017-06-12] MEDS: PROPRANOLOL HCL 40 MG TABLET PO SCH ×3 (09:47→18:11)
[2017-06-12] MEDS: AMLODIPINE 5 MG TABLET PO SCH ×2 (09:48→18:11)
[2017-06-12] MEDS: VALSARTAN 160 MG TABLET PO SCH ×2 (09:49→18:13)
[2017-06-12] MEDS: MULTIVITAMINS,THERAPEUTIC TABLET PO SCH (09:49)
[2017-06-12] MEDS: TIMOLOL MALEATE XE 0.5% OPHT 5 ML BOTTLE EACHEYE SCH (09:51)
[2017-06-12 10:19] LABS: ALANINE AMINOTRANSFERASE 222 U/L (14-59); ALKALINE PHOSPHATASE 173 U/L (50-136); ASPARTATE AMINOTRANSFERASE 33 U/L (15-37); BILIRUBIN,TOTAL 0.5 mg/dL (0.2-1.0); CARBON DIOXIDE 27 mmol/L (21-32); CHLORIDE 102 mmol/L (98-107); CREATININE 0.9 mg/dL (0.6-1.3); GLUCOSE 254 mg/dL (74-106); LIPASE 118 U/L (73-393); PHOSPHOROUS 3.6 mg/dL (2.5-4.9); TOTAL PROTEIN, SERUM 7.7 g/dL (6.4-8.2)
[2017-06-12 10:31] LABS: UREA NITROGEN, BLOOD 20 mg/dL (7-18)
[2017-06-12 10:46] LABS: MAGNESIUM 1.1 mg/dL (1.8-2.4)
[2017-06-12 10:51] LABS: BASOPHILS % (AUTO) 0.4 % (0.0-2.0); EOSINOPHILS # (AUTO) 0.1 K/uL (0.0-0.7); EOSINOPHILS % (AUTO) 1.4 % (0.0-7.0); HEMATOCRIT 34.1 % (37-47); HEMOGLOBIN 11.3 G/DL (12.0-16.0); LYMPHOCYTES # (AUTO) 0.8 K/UL (0.8-4.8); LYMPHOCYTES % (AUTO) 13.7 % (20.5-51.5); MEAN CORPUSCULAR HEMOGLOBIN 26.8 UUG (27.0-31.0); MEAN CORPUSCULAR HGB CONC 33 g/dL (32.0-37.0); MEAN CORPUSCULAR VOLUME 81.3 FL (81.0-99.0); MONOCYTES # (AUTO) 0.6 K/UL (0.1-1.30); MONOCYTES % (AUTO) 10.2 % (0.0-11.0); NEUTROPHILS # (AUTO) 4.3 K/UL (1.8-8.9); NEUTROPHILS % (AUTO) 74.3 % (38.5-71.5); PLATELET COUNT (AUTO) 210 K/UL (150-450); WHITE BLOOD COUNT (AUTO) 5.8 K/UL (4.0-11.2)
[2017-06-12] MEDS ORDERED: MAGNESIUM SULFATE 2 GM in IV DEXTROSE 5% 100 ML IV ONE (11:30)
[2017-06-12] MEDS: INSULIN REGULAR, HUMAN 300 UNIT/3 ML VIAL SQ PRN (12:35)
[2017-06-12] MEDS: MAGNESIUM SULFATE/D5W 100 ML IV SCH ×2 (15:24→16:51)
--- NOTE | 2017-06-12 16:56 | NUR ---
DAILY NOTES EVENING UN=[id number] . PT REFUSES INSULIN COVERAGE
--- NOTE | 2017-06-12 19:30 | NUR ---
Received patient sitting up in chair at bedside. No c/o pain and discomfort at this time. No acute distress. No SOB. IV site patent and intact. No c/o pain on right arm at this time. Cast intact. AM nurse informed me that patient c/o ears feeling stuffed with wax and crying about ears. Checked on patient and no complaints at this time. Patient is stable. All needs attended to promptly. Call light within reach. Will continue to monitor.
[2017-06-12 20:00] VITALS: BP 163/78
[2017-06-12] MEDS: QUETIAPINE FUMARATE 25 MG TABLET PO SCH (20:52)
[2017-06-12] MEDS: TRAZODONE 50 MG TABLET PO SCH (20:53)
[2017-06-13] MEDS: HYDROCODONE/APAP 5-325MG TABLET PO PRN (04:46)
[2017-06-13] MEDS: PANTOPRAZOLE SODIUM 40 MG TABLET.DR PO SCH (06:39)
[2017-06-13] MEDS: LEVOTHYROXINE SODIUM 150 MCG TABLET PO SCH (06:39)
[2017-06-13] MEDS: BLOOD SUGAR DIAGNOSTIC 1 EACH STRIP VI SCH ×4 (06:41→20:46)
--- NOTE | 2017-06-13 06:42 | NUR ---
Patient slept comfortably throughout the night. 7am meds given. BS is 126. No coverage needed. No c/o pain and discomfort at this time. No acute distress. No SOB. Kept clean and dry. All needs attended to promptly. Call light within reach. Will continue to monitor.
[2017-06-13 08:00] VITALS: BP 153/80
[2017-06-13] MEDS: PROPRANOLOL HCL 40 MG TABLET PO SCH ×3 (09:21→16:39)
[2017-06-13] MEDS: glipiZIDE 5 MG TABLET PO SCH ×2 (09:21→16:35)
[2017-06-13] MEDS: METFORMIN HCL 500 MG TABLET PO SCH ×2 (09:21→18:09)
[2017-06-13] MEDS: AMLODIPINE 5 MG TABLET PO SCH ×2 (09:22→16:40)
[2017-06-13] MEDS: ESCITALOPRAM OXALATE 10 MG TABLET PO SCH (09:22)
[2017-06-13] MEDS: VALSARTAN 160 MG TABLET PO SCH ×2 (09:22→16:44)
[2017-06-13] MEDS: MULTIVITAMINS,THERAPEUTIC TABLET PO SCH (09:23)
[2017-06-13] MEDS: TIMOLOL MALEATE XE 0.5% OPHT 5 ML BOTTLE EACHEYE SCH (09:23)
--- NOTE | 2017-06-13 11:39 | NUR ---
Retail Store Clerk: SW met with patient at bedside to assess needs and provide support. Pt is a 76-year-old female admitted to ARU due to Traumatic Brain Injury. Upon social media developer interview, pt presented in a irritable but cooperative mood. Pt had a syncope episode that resulted in a right wrist fracture, therefore required surgery. Per pt, she is a hard of hearing and resides at [facility]. Pt reported she has assistance at the facility and does not drive. Pt stated she has no family support and has a brother who lives in [place]. However, per pt she reports the facility staff is involved and supportive with her care. Pt stated "physical therapy is great" and reported she feels ready to be discharged. She is not and does not have any children. Per pt, she uses a walker at home and denied any further DME at this time. Per chart, denied syncope episode and reported that she "frequent falls." Pt stated her goal was "to leave yesterday." SW engaged in active listening and provided emotional support. SW will encourage to comply with rehab goals and continue hospitalization until medically cleared. SW will provide supportive counseling to address pt's functional decline and ADLs impairment.
[2017-06-13] MEDS: CHOLECALCIFEROL 1,000 UNIT TABLET PO SCH (12:29)
--- NOTE | 2017-06-13 13:15 | NUR ---
REHAB IDT SUMMAMRY
--- NOTE | 2017-06-13 16:00 | NUR ---
1600 Pt. called refinery operator crude unit and reported she was on the floor. Sylvia RN assisted pt. up to a new chair. Maribeth, Nursing bar supervisor present. Pt. reports sliding off chair and landed on her buttocks. She denies having hit head or sustained any other injury. Pt. moves all extremities per baseline. Dr. Noonan notified. No new orders. Friend as bs visiting. VSS. Call light w/in reach.
--- NOTE | 2017-06-13 19:00 | NUR ---
RECEIVED PATIENT SEATED IN THE CHAIR, NO COMPLAIN OF PAIN, NO SOB, NO CHEST PAIN, R HAND WITH CAST, SLING IN PLACE, KEPT R HAND ELEVATED WITH PILLOW. TAUGHT PATIENT TO USE THE CALL WHEN SHE WANTED TO BACK TO BED OR WANTED TO USE THE RESTROOM. CALL LIGHT WITHIN REACH.
[2017-06-13] MEDS: TRAZODONE 50 MG TABLET PO SCH (20:48)
[2017-06-13] MEDS: QUETIAPINE FUMARATE 25 MG TABLET PO SCH (20:49)
--- NOTE | 2017-06-13 20:55 | NUR ---
patient blood sugar 143 refused regular insulin coverage, Dr. Henriquez aware.
[2017-06-13 20:57] VITALS: BP 153/74
[2017-06-14] MEDS: HYDROCODONE/APAP 5-325MG TABLET PO PRN ×3 (01:42→20:43)
--- NOTE | 2017-06-14 05:44 | NUR ---
PATIENT SLEPT MOST OF THE NIGHT, MEDICATED FOR PAIN WITH HELP AFTER ONE HOUR, ASSISTED WITH TOILETING, NO SOB NO CHEST PAIN NOTED, CALL LIGHT WITHIN REACH.
[2017-06-14] MEDS: BLOOD SUGAR DIAGNOSTIC 1 EACH STRIP VI SCH ×4 (06:13→21:30)
[2017-06-14] MEDS: LEVOTHYROXINE SODIUM 150 MCG TABLET PO SCH (06:13)
[2017-06-14] MEDS: PANTOPRAZOLE SODIUM 40 MG TABLET.DR PO SCH (06:13)
[2017-06-14] MEDS: METFORMIN HCL 500 MG TABLET PO SCH ×2 (08:04→18:33)
[2017-06-14] MEDS: CHOLECALCIFEROL 1,000 UNIT TABLET PO SCH (08:05)
[2017-06-14] MEDS: ESCITALOPRAM OXALATE 10 MG TABLET PO SCH (08:05)
[2017-06-14] MEDS: glipiZIDE 5 MG TABLET PO SCH ×2 (08:06→17:23)
[2017-06-14] MEDS: PROPRANOLOL HCL 40 MG TABLET PO SCH ×3 (08:07→17:23)
[2017-06-14] MEDS: AMLODIPINE 5 MG TABLET PO SCH ×2 (08:09→17:24)
[2017-06-14] MEDS: VALSARTAN 160 MG TABLET PO SCH ×2 (08:09→17:24)
[2017-06-14] MEDS: TIMOLOL MALEATE XE 0.5% OPHT 5 ML BOTTLE EACHEYE SCH (08:12)
[2017-06-14] MEDS: MULTIVITAMINS,THERAPEUTIC TABLET PO SCH (08:16)
[2017-06-14 10:24] VITALS: BP 149/67
[2017-06-14] MEDS ORDERED: VALPROATE SODIUM IV 1,000 MG in IV DEXTROSE 5% 100 ML IV ONE (16:15)
--- NOTE | 2017-06-14 19:12 | NUR ---
Patient received to take IV seizure medications. MD notified. Will follow up in the morning.
[2017-06-14 20:00] VITALS: BP 132/64
[2017-06-14] MEDS: QUETIAPINE FUMARATE 25 MG TABLET PO SCH (20:41)
[2017-06-14] MEDS: TRAZODONE 50 MG TABLET PO SCH (20:41)
[2017-06-15] MEDS: HYDROCODONE/APAP 5-325MG TABLET PO PRN (03:38)
[2017-06-15] MEDS: LEVOTHYROXINE SODIUM 150 MCG TABLET PO SCH (05:54)
[2017-06-15] MEDS: PANTOPRAZOLE SODIUM 40 MG TABLET.DR PO SCH (05:54)
--- NOTE | 2017-06-15 06:00 | NUR ---
pt still refused the oral new seizure medication,pt very upset she is to take seizure med she didn't even see the neurologist.pt refused to take any despite explanation of possible episode. pt alert,oriented and aware of pt condition, pt is unsteady walking ,calls when help is needed to go bathroom,no bm overnight, refused insulin last night as pt says her BS is always normal and she doesn't take insulin. right wrist with a cast no numbness, no tingling, still slightly swollen.medicated with norco for pain with good relief.all needs attended,call light at reached.
[2017-06-15] MEDS: BLOOD SUGAR DIAGNOSTIC 1 EACH STRIP VI SCH ×4 (06:50→20:58)
--- NOTE | 2017-06-15 07:05 | NUR ---
Received pt in bed, a/ox3, No distress noted. HOB elevated, with cast to right hand, good capillary refill to right hand <3. Call light/personal belongings within reach. Plan of care discussed. Pt instructed to call for assistance and not to bet oob by herself. Bed kept low/locked position.
[2017-06-15 07:34] VITALS: BP 154/65
[2017-06-15] MEDS: DIVALPROEX 500 MG TABLET.DR PO SCH ×2 (08:39→12:40)
[2017-06-15] MEDS: glipiZIDE 5 MG TABLET PO SCH ×2 (08:39→16:58)
[2017-06-15] MEDS: VALSARTAN 160 MG TABLET PO SCH ×2 (08:39→16:57)
[2017-06-15] MEDS: CALCIUM CARB/VITAMIN D 600-400 MG TABLET PO SCH (08:39)
[2017-06-15] MEDS: MULTIVITAMINS,THERAPEUTIC TABLET PO SCH (08:39)
[2017-06-15] MEDS: AMLODIPINE 5 MG TABLET PO SCH ×2 (08:40→16:58)
[2017-06-15] MEDS: ESCITALOPRAM OXALATE 10 MG TABLET PO SCH (08:40)
[2017-06-15] MEDS: METFORMIN HCL 500 MG TABLET PO SCH ×2 (08:40→16:57)
[2017-06-15] MEDS: CHOLECALCIFEROL 1,000 UNIT TABLET PO SCH (08:40)
[2017-06-15] MEDS: PROPRANOLOL HCL 40 MG TABLET PO SCH ×3 (08:41→16:57)
[2017-06-15] MEDS: TIMOLOL MALEATE XE 0.5% OPHT 5 ML BOTTLE EACHEYE SCH (08:41)
--- NOTE | 2017-06-15 10:00 | NUR ---
Pt seen by Dr. Mena discussed plan of care and also was educated on depakote. Pt agree to take medication as order.
--- NOTE | 2017-06-15 12:00 | NUR ---
Pt noted with blood sugar 59, pt sitting on chair, asymptomatic. 160 ml of cranberry juice and apple juice given. Recheck blood sugar with result of 136.
--- NOTE | 2017-06-15 13:30 | NUR ---
Per physical therapist pt statesd " She wants to ". Assessment done, no suicidal ideation noted, denies thoughts of hurting/injuring self. Dr. Sanchez was in to see pt and was made aware of above. Received orders for Psychiatry evaluation.
--- NOTE | 2017-06-15 18:22 | NUR ---
Pt sitting on chair, No distress noted. Pt was able to ambulate with physical therapy and tolerated well. Pt called for assistance to bathroom. Call light/personal belongings within reach.
--- NOTE | 2017-06-15 19:30 | NUR ---
Patient sitting on bedside chair, no s/s of acute distress. No complaints of pain at this time. Encouraged to call for any help. Call light within reach. Will continue to monitor.
[2017-06-15 20:00] VITALS: BP 141/63
[2017-06-15] MEDS: QUETIAPINE FUMARATE 25 MG TABLET PO SCH (20:55)
[2017-06-15] MEDS: TRAZODONE 50 MG TABLET PO SCH (20:55)
[2017-06-16] MEDS: HYDROCODONE/APAP 5-325MG TABLET PO PRN ×2 (05:47→18:13)
[2017-06-16] MEDS: PANTOPRAZOLE SODIUM 40 MG TABLET.DR PO SCH (07:00)
[2017-06-16] MEDS: LEVOTHYROXINE SODIUM 150 MCG TABLET PO SCH (07:00)
[2017-06-16] MEDS: BLOOD SUGAR DIAGNOSTIC 1 EACH STRIP VI SCH ×5 (07:41→21:16)
--- NOTE | 2017-06-16 07:54 | NUR ---
Patient sleeping with no s/s of acute distress. Respirations even and unlabored. Complained of pain at 8/10 on right arm this morning. Truxton given as ordered. Fell asleep right after. Frequent checks done. Due meds given. Needs attended. Call light kept within reach. Slept well during the night. Endorsed accordingly.
[2017-06-16 08:34] VITALS: BP 143/63
[2017-06-16] MEDS: VALSARTAN 160 MG TABLET PO SCH ×2 (09:00→17:56)
[2017-06-16] MEDS: TIMOLOL MALEATE XE 0.5% OPHT 5 ML BOTTLE EACHEYE SCH (09:00)
[2017-06-16] MEDS: DIVALPROEX 500 MG TABLET.DR PO SCH ×2 (09:00→13:27)
[2017-06-16] MEDS: CALCIUM CARB/VITAMIN D 600-400 MG TABLET PO SCH (09:00)
[2017-06-16] MEDS: METFORMIN HCL 500 MG TABLET PO SCH ×2 (09:58→17:55)
[2017-06-16] MEDS: AMLODIPINE 5 MG TABLET PO SCH ×2 (09:59→17:56)
[2017-06-16] MEDS: glipiZIDE 5 MG TABLET PO SCH ×2 (10:00→17:57)
[2017-06-16] MEDS: ESCITALOPRAM OXALATE 10 MG TABLET PO SCH (10:00)
[2017-06-16] MEDS: CHOLECALCIFEROL 1,000 UNIT TABLET PO SCH (10:02)
[2017-06-16] MEDS: PROPRANOLOL HCL 40 MG TABLET PO SCH ×3 (10:02→17:55)
[2017-06-16] MEDS: MULTIVITAMINS,THERAPEUTIC TABLET PO SCH (10:02)
--- NOTE | 2017-06-16 20:00 | NUR ---
PATIENT AWAKE IN CHAIR AT BEDSIDE. PATIENT IS A/O X4. NO C/O PAIN AT THIS TIME. PATIENT WAS PREVIOUSLY GIVEN PAIN MEDICATION PRIOR TO SHIFT CHANGE. VS WNL. NO RESP. DISTRESS NOTED. RIGHT ARM NOTED ON SLING. CALL LIGHT IN REACH. ALL NEEDS ATTENDED. WILL CONTINUE TO MONITOR.
[2017-06-16 20:32] VITALS: BP 154/66
--- NOTE | 2017-06-16 20:40 | NUR ---
PATIENT SITTING BED WATCHING TV. BLOOD SUGAR TAKEN AND RECEIVED 57. PATIENT IS A/O X4. ASYMPTOMATIC. PATIENT GIVEN CHOCOLATE PUDDING X2 REQUESTED PER PATIENT. WILL RECHECK IN 15-20 MINUTES. WILL CONTINUE TO MONITOR.
[2017-06-16] MEDS: TRAZODONE 50 MG TABLET PO SCH (20:42)
[2017-06-16] MEDS: QUETIAPINE FUMARATE 25 MG TABLET PO SCH (20:42)
--- NOTE | 2017-06-16 21:15 | NUR ---
RECHECKED PATIENTS BLOOD SUGAR. BS IS NOW 130. WILL CONTINUE TO MONITOR. ALL NEEDS ATTENDED.
[2017-06-17] MEDS: HYDROCODONE/APAP 5-325MG TABLET PO PRN ×2 (03:53→15:41)
--- NOTE | 2017-06-17 04:00 | NUR ---
PATIENT GIVEN NORCO 1 TAB PO PRN FOR PAIN.
--- NOTE | 2017-06-17 06:00 | NUR ---
PATIENT ASLEEP. EASILY AROUSABLE. NO C/O PAIN AT THIS TIME. BED ALARM ON. ALL NEEDS ATTENDED.
[2017-06-17] MEDS: PANTOPRAZOLE SODIUM 40 MG TABLET.DR PO SCH (06:28)
[2017-06-17] MEDS: LEVOTHYROXINE SODIUM 150 MCG TABLET PO SCH (06:29)
[2017-06-17] MEDS: BLOOD SUGAR DIAGNOSTIC 1 EACH STRIP VI SCH ×4 (06:31→21:55)
[2017-06-17 07:32] VITALS: BP 153/73
[2017-06-17] MEDS ORDERED: HYDROCODONE/APAP 5-325MG TABLET PO ONE (08:00)
[2017-06-17] MEDS: MULTIVITAMINS,THERAPEUTIC TABLET PO SCH (08:28)
[2017-06-17] MEDS: CHOLECALCIFEROL 1,000 UNIT TABLET PO SCH (08:28)
[2017-06-17] MEDS: METFORMIN HCL 500 MG TABLET PO SCH ×2 (08:29→17:08)
[2017-06-17] MEDS: CALCIUM CARB/VITAMIN D 600-400 MG TABLET PO SCH (08:30)
[2017-06-17] MEDS: glipiZIDE 5 MG TABLET PO SCH ×2 (08:30→17:09)
[2017-06-17] MEDS: ESCITALOPRAM OXALATE 10 MG TABLET PO SCH (08:31)
[2017-06-17] MEDS: DIVALPROEX 500 MG TABLET.DR PO SCH ×2 (08:31→13:00)
[2017-06-17] MEDS: VALSARTAN 160 MG TABLET PO SCH ×2 (08:33→17:08)
[2017-06-17] MEDS: PROPRANOLOL HCL 40 MG TABLET PO SCH ×3 (08:33→17:08)
[2017-06-17] MEDS: AMLODIPINE 5 MG TABLET PO SCH ×2 (08:34→17:09)
[2017-06-17] MEDS: TIMOLOL MALEATE XE 0.5% OPHT 5 ML BOTTLE EACHEYE SCH (08:35)
[2017-06-17 10:09] LABS: IRON, SERUM 62 ug/dL (50-175)
[2017-06-17 19:57] VITALS: BP 139/62
[2017-06-17] MEDS: QUETIAPINE FUMARATE 25 MG TABLET PO SCH (21:46)
[2017-06-17] MEDS: TRAZODONE 50 MG TABLET PO SCH (21:46)
[2017-06-18] MEDS: HYDROCODONE/APAP 5-325MG TABLET PO PRN ×3 (00:43→17:12)
[2017-06-18] MEDS: LEVOTHYROXINE SODIUM 150 MCG TABLET PO SCH (06:18)
[2017-06-18] MEDS: PANTOPRAZOLE SODIUM 40 MG TABLET.DR PO SCH (06:18)
[2017-06-18 07:20] VITALS: BP 155/70
[2017-06-18] MEDS: BLOOD SUGAR DIAGNOSTIC 1 EACH STRIP VI SCH ×4 (07:31→21:36)
[2017-06-18 07:46] LABS: BASOPHILS % (AUTO) 0.5 % (0.0-2.0); EOSINOPHILS # (AUTO) 0.2 K/uL (0.0-0.7); EOSINOPHILS % (AUTO) 2.1 % (0.0-7.0); HEMATOCRIT 35.1 % (37-47); HEMOGLOBIN 11.3 G/DL (12.0-16.0); LYMPHOCYTES # (AUTO) 1.3 K/UL (0.8-4.8); LYMPHOCYTES % (AUTO) 16.7 % (20.5-51.5); MEAN CORPUSCULAR HEMOGLOBIN 26.4 UUG (27.0-31.0); MEAN CORPUSCULAR HGB CONC 32 g/dL (32.0-37.0); MEAN CORPUSCULAR VOLUME 81.9 FL (81.0-99.0); MONOCYTES # (AUTO) 0.8 K/UL (0.1-1.30); NEUTROPHILS # (AUTO) 5.7 K/UL (1.8-8.9); NEUTROPHILS % (AUTO) 70.7 % (38.5-71.5); PLATELET COUNT (AUTO) 242 K/UL (150-450); RED BLOOD CELL COUNT(AUTO) 4.28 MIL/UL (4.2-5.4)
[2017-06-18 08:20] LABS: CARBON DIOXIDE 30 mmol/L (21-32); CHLORIDE 100 mmol/L (98-107); CREATININE 0.9 mg/dL (0.6-1.3); GLUCOSE 132 mg/dL (74-106); PHOSPHOROUS 3.4 mg/dL (2.5-4.9); POTASSIUM 4.1 mmol/L (3.5-5.1); UREA NITROGEN, BLOOD 27 mg/dL (7-18)
[2017-06-18 08:41] LABS: MAGNESIUM 1.1 mg/dL (1.8-2.4)
[2017-06-18] MEDS: METFORMIN HCL 500 MG TABLET PO SCH ×2 (08:59→17:26)
[2017-06-18] MEDS: MULTIVITAMINS,THERAPEUTIC TABLET PO SCH (08:59)
[2017-06-18] MEDS: ESCITALOPRAM OXALATE 10 MG TABLET PO SCH (08:59)
[2017-06-18] MEDS: DIVALPROEX 500 MG TABLET.DR PO SCH ×2 (08:59→12:49)
[2017-06-18 09:00] VITALS: BP 134/91
[2017-06-18] MEDS: VALSARTAN 160 MG TABLET PO SCH ×2 (09:00→17:26)
[2017-06-18] MEDS: glipiZIDE 5 MG TABLET PO SCH ×2 (09:00→17:13)
[2017-06-18] MEDS: PROPRANOLOL HCL 40 MG TABLET PO SCH ×3 (09:00→17:26)
[2017-06-18] MEDS: TIMOLOL MALEATE XE 0.5% OPHT 5 ML BOTTLE EACHEYE SCH (09:00)
--- NOTE | 2017-06-18 09:00 | NUR ---
NSG PT TOOK ALL AM MEDS, NO DISTRESS, NO C/O PAIN, LAB CALLED MAG IS 1.1, CHARGE NURSE MARY BETH CALLED DOCTOR ORDERED MAG IV.
[2017-06-18] MEDS: CALCIUM CARB/VITAMIN D 600-400 MG TABLET PO SCH (09:01)
[2017-06-18] MEDS: AMLODIPINE 5 MG TABLET PO SCH ×2 (09:01→17:28)
[2017-06-18] MEDS: CHOLECALCIFEROL 1,000 UNIT TABLET PO SCH (09:01)
[2017-06-18] MEDS: MAGNESIUM SULFATE/D5W 100 ML IV SCH ×4 (10:57→14:36)
[2017-06-18] MEDS: QUETIAPINE FUMARATE 25 MG TABLET PO SCH (21:34)
[2017-06-18] MEDS: TRAZODONE 50 MG TABLET PO SCH (21:34)
[2017-06-18 22:00] VITALS: BP 119/57
[2017-06-19] MEDS: HYDROCODONE/APAP 5-325MG TABLET PO PRN ×2 (05:28→18:42)
[2017-06-19] MEDS: PANTOPRAZOLE SODIUM 40 MG TABLET.DR PO SCH (06:03)
[2017-06-19] MEDS: LEVOTHYROXINE SODIUM 150 MCG TABLET PO SCH (06:03)
[2017-06-19] MEDS: BLOOD SUGAR DIAGNOSTIC 1 EACH STRIP VI SCH ×4 (06:34→20:28)
[2017-06-19 07:15] VITALS: BP 121/57
[2017-06-19 07:35] LABS: CARBON DIOXIDE 27 mmol/L (21-32); CHLORIDE 100 mmol/L (98-107); GLUCOSE 136 mg/dL (74-106); UREA NITROGEN, BLOOD 40 mg/dL (7-18)
[2017-06-19 07:38] LABS: POTASSIUM 5.1 mmol/L (3.5-5.1)
[2017-06-19] MEDS: CALCIUM CARB/VITAMIN D 600-400 MG TABLET PO SCH (08:14)
[2017-06-19] MEDS: glipiZIDE 5 MG TABLET PO SCH ×2 (08:14→17:15)
[2017-06-19] MEDS: AMLODIPINE 5 MG TABLET PO SCH ×2 (08:14→17:15)
[2017-06-19] MEDS: VALSARTAN 160 MG TABLET PO SCH ×2 (08:14→17:15)
[2017-06-19] MEDS: CHOLECALCIFEROL 1,000 UNIT TABLET PO SCH (08:14)
[2017-06-19] MEDS: MULTIVITAMINS,THERAPEUTIC TABLET PO SCH (08:16)
[2017-06-19] MEDS: DIVALPROEX 500 MG TABLET.DR PO SCH ×2 (08:16→12:03)
[2017-06-19] MEDS: ESCITALOPRAM OXALATE 10 MG TABLET PO SCH (08:16)
[2017-06-19] MEDS: METFORMIN HCL 500 MG TABLET PO SCH ×2 (08:16→17:16)
[2017-06-19] MEDS: PROPRANOLOL HCL 40 MG TABLET PO SCH ×3 (08:16→17:15)
[2017-06-19] MEDS: TIMOLOL MALEATE XE 0.5% OPHT 5 ML BOTTLE EACHEYE SCH (08:18)
--- NOTE | 2017-06-19 19:00 | NUR ---
RECEIVED PATIENT ALERT ORIENTED ABLE TO MAKE NEEDS KNOWN, COMPLAIN OF R HAND PAIN, MEDICATED BY AM NURSE, NO SOB NO CHEST PAIN, ASSISTED WITH TOILETING, CONT TO MONITOR.
[2017-06-19 20:00] VITALS: BP 130/68
[2017-06-19] MEDS: TRAZODONE 50 MG TABLET PO SCH (20:25)
[2017-06-19] MEDS: QUETIAPINE FUMARATE 25 MG TABLET PO SCH (20:25)
[2017-06-20] MEDS: HYDROCODONE/APAP 5-325MG TABLET PO PRN ×4 (04:13→20:46)
[2017-06-20] MEDS: BLOOD SUGAR DIAGNOSTIC 1 EACH STRIP VI SCH ×4 (06:14→20:47)
[2017-06-20] MEDS: PANTOPRAZOLE SODIUM 40 MG TABLET.DR PO SCH (06:14)
[2017-06-20] MEDS: LEVOTHYROXINE SODIUM 150 MCG TABLET PO SCH (06:14)
--- NOTE | 2017-06-20 06:41 | NUR ---
PATIENT SLEPT MOST OF THE NIGHT, MEDICATED FOR PAIN OF R HAND/ARM AND BACK WITH EFFECTIVE RESULT, ASSISTED WITH TOILETING, CONT TO MONITOR.
[2017-06-20 07:30] VITALS: BP 138/62
[2017-06-20] MEDS: DIVALPROEX 500 MG TABLET.DR PO SCH ×2 (09:00→12:11)
[2017-06-20] MEDS: CALCIUM CARB/VITAMIN D 600-400 MG TABLET PO SCH (09:41)
[2017-06-20] MEDS: PROPRANOLOL HCL 40 MG TABLET PO SCH ×3 (09:42→17:08)
[2017-06-20] MEDS: METFORMIN HCL 500 MG TABLET PO SCH ×2 (09:43→17:02)
[2017-06-20] MEDS: glipiZIDE 5 MG TABLET PO SCH ×2 (09:43→17:08)
[2017-06-20] MEDS: CHOLECALCIFEROL 1,000 UNIT TABLET PO SCH (09:44)
[2017-06-20] MEDS: AMLODIPINE 5 MG TABLET PO SCH ×2 (09:44→17:02)
[2017-06-20] MEDS: MULTIVITAMINS,THERAPEUTIC TABLET PO SCH (09:44)
[2017-06-20] MEDS: VALSARTAN 160 MG TABLET PO SCH ×2 (09:44→17:09)
[2017-06-20] MEDS: ESCITALOPRAM OXALATE 10 MG TABLET PO SCH (09:45)
[2017-06-20] MEDS: TIMOLOL MALEATE XE 0.5% OPHT 5 ML BOTTLE EACHEYE SCH (09:45)
--- NOTE | 2017-06-20 14:22 | NUR ---
REHAB TEAM CONFERENCE 06/20/17
--- NOTE | 2017-06-20 14:24 | NUR ---
DAILY NOTE BS FOR AFTERNOON 181 PT REFUSES INSULIN
[2017-06-20 20:21] VITALS: BP 160/73
[2017-06-20] MEDS: TRAZODONE 50 MG TABLET PO SCH (20:46)
[2017-06-20] MEDS: QUETIAPINE FUMARATE 25 MG TABLET PO SCH (20:47)
[2017-06-21] MEDS: HYDROCODONE/APAP 5-325MG TABLET PO PRN ×3 (04:39→23:40)
[2017-06-21 05:00] VITALS: BP 143/68
--- NOTE | 2017-06-21 06:00 | NUR ---
pt with assist to bathroom,pt with unsteady gait.voiding well,no bm, medicated with 2 norco, wih good relief and fall asleep.bp rechecked and wnl. refused insulin coverage last night and this am bs is wnl.right wrist incision dry and intact ,still swollen, and both feet swollen, kept elevated with pillows while in bed. will continue to monitor,call light at reached.
[2017-06-21] MEDS: PANTOPRAZOLE SODIUM 40 MG TABLET.DR PO SCH (06:33)
[2017-06-21] MEDS: LEVOTHYROXINE SODIUM 150 MCG TABLET PO SCH (06:33)
[2017-06-21] MEDS: BLOOD SUGAR DIAGNOSTIC 1 EACH STRIP VI SCH ×4 (06:34→20:49)
[2017-06-21] MEDS: METFORMIN HCL 500 MG TABLET PO SCH ×2 (07:54→17:40)
[2017-06-21 08:12] VITALS: BP 159/79
[2017-06-21] MEDS: TIMOLOL MALEATE XE 0.5% OPHT 5 ML BOTTLE EACHEYE SCH (08:22)
[2017-06-21] MEDS: MULTIVITAMINS,THERAPEUTIC TABLET PO SCH (08:27)
[2017-06-21] MEDS: PROPRANOLOL HCL 40 MG TABLET PO SCH ×3 (08:28→17:39)
[2017-06-21] MEDS: glipiZIDE 5 MG TABLET PO SCH ×2 (08:28→17:00)
[2017-06-21] MEDS: AMLODIPINE 5 MG TABLET PO SCH ×2 (08:28→17:39)
[2017-06-21] MEDS: CALCIUM CARB/VITAMIN D 600-400 MG TABLET PO SCH (08:28)
[2017-06-21] MEDS: VALSARTAN 160 MG TABLET PO SCH ×2 (08:29→17:39)
[2017-06-21] MEDS: ESCITALOPRAM OXALATE 10 MG TABLET PO SCH (08:29)
[2017-06-21] MEDS: CHOLECALCIFEROL 1,000 UNIT TABLET PO SCH (08:29)
[2017-06-21] MEDS: DIVALPROEX 500 MG TABLET.DR PO SCH ×2 (08:29→12:57)
--- NOTE | 2017-06-21 09:00 | NUR ---
Received patient awake, alert and oriented. No complaints of pain or discomfort noted. Not in any form of distress. Call light within reach. Assisted patient in morning care with minimal assist.
--- NOTE | 2017-06-21 15:00 | NUR ---
Tolerated therapy well. Called and verified with Dr. Blum weight bearing status and said non-weight bearing on right wrist, platform walker forearm.
--- NOTE | 2017-06-21 17:42 | NUR ---
Complained of pain over right arm rated as 10/10. PRN [place] 2 tabs given. Accu check, blood sugar of 77, orange juice given. Held metformin and glipizide.
[2017-06-21 20:07] VITALS: BP 135/62
[2017-06-21] MEDS: QUETIAPINE FUMARATE 25 MG TABLET PO SCH (20:42)
[2017-06-21] MEDS: TRAZODONE 50 MG TABLET PO SCH (20:42)
[2017-06-22] MEDS: HYDROCODONE/APAP 5-325MG TABLET PO PRN ×2 (05:17→20:45)
--- NOTE | 2017-06-22 06:00 | NUR ---
removed iv, pt complaining that its getting worst with pain and swollen.slept well,vss,afebrile refused insulin coverage.
[2017-06-22] MEDS: PANTOPRAZOLE SODIUM 40 MG TABLET.DR PO SCH (06:13)
[2017-06-22] MEDS: LEVOTHYROXINE SODIUM 150 MCG TABLET PO SCH (06:13)
[2017-06-22] MEDS: BLOOD SUGAR DIAGNOSTIC 1 EACH STRIP VI SCH ×4 (06:15→21:00)
[2017-06-22 07:43] LABS: BASOPHILS # (AUTO) 0.1 K/uL (0.0-8.0); BASOPHILS % (AUTO) 0.7 % (0.0-2.0); EOSINOPHILS # (AUTO) 0.2 K/uL (0.0-0.7); EOSINOPHILS % (AUTO) 1.5 % (0.0-7.0); HEMATOCRIT 33.3 % (37-47); HEMOGLOBIN 10.9 G/DL (12.0-16.0); LYMPHOCYTES % (AUTO) 9.1 % (20.5-51.5); MEAN CORPUSCULAR HEMOGLOBIN 26.9 UUG (27.0-31.0); MEAN CORPUSCULAR HGB CONC 33 g/dL (32.0-37.0); MEAN CORPUSCULAR VOLUME 82.1 FL (81.0-99.0); MONOCYTES # (AUTO) 0.7 K/UL (0.1-1.30); MONOCYTES % (AUTO) 6.6 % (0.0-11.0); NEUTROPHILS # (AUTO) 8.6 K/UL (1.8-8.9); NEUTROPHILS % (AUTO) 82.1 % (38.5-71.5); PLATELET COUNT (AUTO) 189 K/UL (150-450); RED BLOOD CELL COUNT(AUTO) 4.06 MIL/UL (4.2-5.4)
[2017-06-22 07:52] LABS: CARBON DIOXIDE 34 mmol/L (21-32); CHLORIDE 100 mmol/L (98-107); CREATININE 0.7 mg/dL (0.6-1.3); GLUCOSE 139 mg/dL (74-106); PHOSPHOROUS 3.9 mg/dL (2.5-4.9); POTASSIUM 4.4 mmol/L (3.5-5.1); UREA NITROGEN, BLOOD 22 mg/dL (7-18)
[2017-06-22 07:53] LABS: WHITE BLOOD COUNT (AUTO) 10.6 K/UL (4.0-11.2)
[2017-06-22 08:00] LABS: MAGNESIUM 1.2 mg/dL (1.8-2.4)
--- NOTE | 2017-06-22 08:05 | NUR ---
Lab called regarding critical mag. 1.2. [facility] called re. lab value and left message with exchange.
[2017-06-22] MEDS: CALCIUM CARB/VITAMIN D 600-400 MG TABLET PO SCH (08:41)
[2017-06-22] MEDS: glipiZIDE 5 MG TABLET PO SCH ×2 (08:42→18:27)
[2017-06-22] MEDS: VALSARTAN 160 MG TABLET PO SCH ×2 (08:42→18:26)
[2017-06-22] MEDS: CHOLECALCIFEROL 1,000 UNIT TABLET PO SCH (08:42)
[2017-06-22] MEDS: METFORMIN HCL 500 MG TABLET PO SCH ×2 (08:43→18:30)
[2017-06-22] MEDS: MULTIVITAMINS,THERAPEUTIC TABLET PO SCH (08:43)
[2017-06-22] MEDS: DIVALPROEX 500 MG TABLET.DR PO SCH ×2 (08:43→13:00)
[2017-06-22] MEDS: ESCITALOPRAM OXALATE 10 MG TABLET PO SCH (08:43)
[2017-06-22] MEDS: PROPRANOLOL HCL 40 MG TABLET PO SCH ×3 (08:44→18:25)
[2017-06-22] MEDS ORDERED: MAGNESIUM SULFATE/D5W 100 ML IV SCH (08:45)
[2017-06-22 08:46] VITALS: BP 154/79
--- NOTE | 2017-06-22 08:46 | NUR ---
Notified Rich Holly regarding magnesium result of 1.2 and he ordered Magnesium 4gm IV. Order carried out. Patient made aware.
[2017-06-22] MEDS: TIMOLOL MALEATE XE 0.5% OPHT 5 ML BOTTLE EACHEYE SCH (08:47)
[2017-06-22] MEDS: AMLODIPINE 5 MG TABLET PO SCH ×2 (08:48→18:25)
[2017-06-22 09:45] LABS: BAND % (MANUAL) 6 % (0-10); EOSINOPHILS % (MANUAL) 1 % (0-8); LYMPHOCYTES % (MANUAL) 10 % (20-40); MONOCYTES % (MANUAL) 6 % (2-10); NEUTROPHILS % (MANUAL) 77 % (42-75)
--- NOTE | 2017-06-22 10:00 | NUR ---
Patient refused IV insertion for IV magnesium. Explained risks and benefits but patient still refused. Spoke to Rich Holly and ordered to d/c IV magnesium and start magnesium oxide 800 mg PO TID x 12 doses. Order carried out. Patient made aware and agreeable.
[2017-06-22] MEDS: MAGNESIUM OXIDE 400 MG TABLET PO SCH ×3 (10:37→17:14)
[2017-06-22] MEDS: INSULIN REGULAR, HUMAN 300 UNIT/3 ML VIAL SQ PRN (12:13)
--- NOTE | 2017-06-22 17:17 | NUR ---
BS 61. Pt. starting to eat dinner. Will recheck BS after dinner. Hold Glucophage.
--- NOTE | 2017-06-22 18:55 | NUR ---
On recheck bs 141. All meds given per MAR. Pt. refuses Depakote stating she has never had seizures. [facility] exchange callled.
[2017-06-22 20:09] VITALS: BP 131/65
[2017-06-22] MEDS: QUETIAPINE FUMARATE 25 MG TABLET PO SCH (20:44)
[2017-06-22] MEDS: TRAZODONE 50 MG TABLET PO SCH (20:44)
[2017-06-23] MEDS: HYDROCODONE/APAP 5-325MG TABLET PO PRN ×2 (04:12→20:39)
[2017-06-23] MEDS: PANTOPRAZOLE SODIUM 40 MG TABLET.DR PO SCH (06:16)
[2017-06-23] MEDS: LEVOTHYROXINE SODIUM 150 MCG TABLET PO SCH (06:16)
[2017-06-23] MEDS: BLOOD SUGAR DIAGNOSTIC 1 EACH STRIP VI SCH ×4 (06:53→20:41)
--- NOTE | 2017-06-23 07:20 | NUR ---
HANDOFF REPORT WITH NIGHT NURSE. PATIENT ROUNDS. INTRODUCED SELF AT THIS TIME.
[2017-06-23 07:57] VITALS: BP 147/71
--- NOTE | 2017-06-23 08:00 | NUR ---
PATIENT DIRECTOR FROM [facility] CALL AND NOT ABLE TO SEND A NEONATAL SPECIALIST TO EVALUATE THE PATIENT FOR READMISSION TO FACILITY. SAYS EARLIEST SUNDAY AFTER DISCUSSION OF SUNDAY.
[2017-06-23] MEDS: VALSARTAN 160 MG TABLET PO SCH ×2 (09:38→18:34)
[2017-06-23] MEDS: glipiZIDE 5 MG TABLET PO SCH ×2 (09:38→18:27)
[2017-06-23] MEDS: PROPRANOLOL HCL 40 MG TABLET PO SCH ×3 (09:38→18:34)
[2017-06-23] MEDS: CALCIUM CARB/VITAMIN D 600-400 MG TABLET PO SCH (09:38)
[2017-06-23] MEDS: AMLODIPINE 5 MG TABLET PO SCH ×2 (09:39→18:35)
[2017-06-23] MEDS: MULTIVITAMINS,THERAPEUTIC TABLET PO SCH (09:39)
[2017-06-23] MEDS: CHOLECALCIFEROL 1,000 UNIT TABLET PO SCH (09:39)
[2017-06-23] MEDS: DIVALPROEX 500 MG TABLET.DR PO SCH ×3 (09:39→12:31)
[2017-06-23] MEDS: METFORMIN HCL 500 MG TABLET PO SCH ×2 (09:40→18:28)
[2017-06-23] MEDS: TIMOLOL MALEATE XE 0.5% OPHT 5 ML BOTTLE EACHEYE SCH (09:40)
[2017-06-23] MEDS: ESCITALOPRAM OXALATE 10 MG TABLET PO SCH (09:40)
[2017-06-23] MEDS: MAGNESIUM OXIDE 400 MG TABLET PO SCH ×3 (09:41→18:27)
--- NOTE | 2017-06-23 09:45 | NUR ---
MEDICATION ROUNDS. PATIENT SAYS SHE WAS CALLING SINCE 9 AM. REQUESTS TO GO TO BATHROOM. ASSISTED PATIENT INTO RESTROOM. SHE REFUSED WALKER. SHE GAURDED HER AFFECTED WRIST. NO INCONTINENCE IN HER UNDERWEAR OR BED NOTED. AFTERWARD SET UP PATIENT WITH BASIN AND WASH CLOTHES. CUSTODIAN SUPERVISOR WAS ASSISTING PATIENT.
--- NOTE | 2017-06-23 10:10 | NUR ---
Call made to patient's ASH to review discharge plan. Spoke to ASH's DON, was told that they were not made aware of patient discharge today, and would have to hold the discharge to review patient's case. Told DOMINGUEZ that we had documentation by our mattress spring encaser that our CM spoke to a RN at the [facility] 3 days ago, and that they were made aware and set up the discharge. DOMINGUEZ denied being made aware, and stated that "I am the only nurse hired at the assisted living. I wasn't made aware that Ms. Mc was discharging today." DOMINGUEZ stated that she would come to evaluate the patient tomorrow morning and assess for discharge. Nursing phosphorus processing supervisor made aware of delay in discharge.
--- NOTE | 2017-06-23 12:00 | NUR ---
PATIENT DEVASTATION AT POSSIBILITY OF NOT RETURNING TO [place] TODAY. SAYS SHE HAS LIVED THERE FOR TEN YEARS AND WATCHED HER ONLY FAMILY AND FRIENDS ARE FROM THE FACILITY. EVEN HER BROTHER HAS MOVED AWAY TO [place] AND ONLY CALLS MOSTLY IN THE MORNINGS, BUT DID NOT CALL TODAY. SAYS SHE WOULD LIKE ASSISTANCE FROM HER BROTHER AND FEELS LIKE SHE IS FALLEN APART. HAS NOT SEEN HER BROTHER SINCE JANUARY OF THIS YEAR PER HER REPORT. SAYS HE WILL RETURN IN AUGUST OF THIS YEAR.
[2017-06-23 12:26] VITALS: BP 147/71
[2017-06-23] MEDS: INSULIN REGULAR, HUMAN 300 UNIT/3 ML VIAL SQ PRN ×2 (13:03→18:32)
--- NOTE | 2017-06-23 15:00 | NUR ---
PATIENT VERBALIZED FRUSTRATION AT NOT GOING BACK TO [facility] TODAY. SHE SAID SHE TOLD ALL HER FRIENDS SHE WAS COMING BACK.
--- NOTE | 2017-06-23 17:33 | NUR ---
PATIENT WITH RECEIVABLE EXECUTIVE AT THIS TIME. RECEIVABLE EXECUTIVE ASSISTING PRIOR TO MEAL AT DINNER TIME.
--- NOTE | 2017-06-23 19:39 | NUR ---
HANDOFF REPORT FOR NIGHT NURSE.
[2017-06-23 19:52] VITALS: BP 134/62
[2017-06-23] MEDS: TRAZODONE 50 MG TABLET PO SCH (20:37)
[2017-06-23] MEDS: QUETIAPINE FUMARATE 25 MG TABLET PO SCH (20:37)
[2017-06-23] MEDS ORDERED: HYDROCORTISONE 1% CREAM 30 GM TUBE TP ONE ×2 (22:15→22:53)
[2017-06-24] MEDS: HYDROCODONE/APAP 5-325MG TABLET PO PRN ×3 (03:57→20:32)
--- NOTE | 2017-06-24 06:23 | NUR ---
RECEIVED PATIENT ALERTAND ORIENTED X4 OOB TO THE BR WITH GIANFRANCO ASSIST. ABLE TO MANAGE BY HERSELF. LEFT ARM REDDENNED AND SWOLLEN AND SEEMS WITH SOME PUS NOTED. DR KANG CHACON CALLED AND MADE AWARE, ORDERED HYDROCORTISONE OINTMENT APPLIED ORDERED. RIGHT ARM INCISION CLEAN AND DRY SHEET HEATER HELPER. COMPLAINED OF PAIN ON THE RIGHT ARM, MEDICATED WITH 1 TAB OF NORCO WITH RELIEF. BLOOD SUGAR TAKEN AT 2100 143. SLEPT WELL MOST OF THE SHIFT. VITAL SIGNS STABLE. HAD BM LAST NIGHT. PATIENT AGAIN HAD 1 TAB OF NORCO AND EFFECTIVE.WILL MONITOR PATIENT. FALL PRECAUTIONS MAINTAINED. CALL MADRID WITHIN REACH. ATTENDED TO NEEDS PROMPTLY.
[2017-06-24] MEDS: PANTOPRAZOLE SODIUM 40 MG TABLET.DR PO SCH (07:02)
[2017-06-24] MEDS: LEVOTHYROXINE SODIUM 150 MCG TABLET PO SCH (07:02)
[2017-06-24] MEDS: BLOOD SUGAR DIAGNOSTIC 1 EACH STRIP VI SCH ×4 (07:06→20:29)
--- NOTE | 2017-06-24 07:20 | NUR ---
RECEIVED REPORT FROM BENCH EXAMINER NURSE. PATIENT AMBULATING TO BATHROOM WITH ASSIST. PATIENT WAS CRYING, BUT DID NOT APPEAR TO BE IN ANY PHYSICAL DISTRESS, NO EVIDENCE OF SOB, OR PAIN.
[2017-06-24 08:00] VITALS: BP 146/69
[2017-06-24] MEDS: MULTIVITAMINS,THERAPEUTIC TABLET PO SCH (08:54)
[2017-06-24] MEDS: DIVALPROEX 500 MG TABLET.DR PO SCH ×2 (08:54→12:33)
[2017-06-24] MEDS: VALSARTAN 160 MG TABLET PO SCH ×2 (08:57→17:22)
[2017-06-24] MEDS: AMLODIPINE 5 MG TABLET PO SCH ×2 (08:57→17:22)
[2017-06-24] MEDS: CALCIUM CARB/VITAMIN D 600-400 MG TABLET PO SCH (08:57)
[2017-06-24] MEDS: glipiZIDE 5 MG TABLET PO SCH ×2 (09:01→17:22)
[2017-06-24] MEDS: METFORMIN HCL 500 MG TABLET PO SCH ×2 (09:01→17:22)
[2017-06-24] MEDS: ESCITALOPRAM OXALATE 10 MG TABLET PO SCH (09:01)
[2017-06-24] MEDS: PROPRANOLOL HCL 40 MG TABLET PO SCH ×3 (09:01→17:21)
[2017-06-24] MEDS: MAGNESIUM OXIDE 400 MG TABLET PO SCH ×3 (09:02→17:21)
[2017-06-24] MEDS: TIMOLOL MALEATE XE 0.5% OPHT 5 ML BOTTLE EACHEYE SCH (09:02)
[2017-06-24] MEDS: CHOLECALCIFEROL 1,000 UNIT TABLET PO SCH (09:02)
[2017-06-24] MEDS: INSULIN REGULAR, HUMAN 300 UNIT/3 ML VIAL SQ PRN (12:09)
[2017-06-24] MEDS: HYDROCORTISONE 1% CREAM 30 GM TUBE TP SCH ×2 (12:34→17:22)
--- NOTE | 2017-06-24 18:19 | NUR ---
PATIENT WAS VERY ANXIOUS TO LEAVE TODAY AND CONTINUED TO DISCUSS THIS. PATIENT DID NOT HAVE ANY CRYING EPISODES. NO EVIDENCE OF DISTRESS NOTED. PATIENT SHOWERED WITH MINIMUM ASSIST. PATIENT IS CURRENTLY SITTING IN CHAIR AT THE BEDSIDE WATCHING TV. CALL LIGHT IN REACH.
[2017-06-24 20:00] VITALS: BP 129/63
[2017-06-24] MEDS: QUETIAPINE FUMARATE 25 MG TABLET PO SCH (20:30)
[2017-06-24] MEDS: TRAZODONE 50 MG TABLET PO SCH (20:30)
[2017-06-25] MEDS: HYDROCODONE/APAP 5-325MG TABLET PO PRN (05:09)
--- NOTE | 2017-06-25 06:00 | NUR ---
NO SIGNIFICANT CHANGES OVERNIGHT ,VSS,AFEBRILE, GIVEN NORCO FOR ARM PAIN, AND SLEPT WELL
[2017-06-25] MEDS: LEVOTHYROXINE SODIUM 150 MCG TABLET PO SCH (06:21)
[2017-06-25] MEDS: PANTOPRAZOLE SODIUM 40 MG TABLET.DR PO SCH (06:21)
[2017-06-25] MEDS: BLOOD SUGAR DIAGNOSTIC 1 EACH STRIP VI SCH ×2 (06:21→12:17)
--- NOTE | 2017-06-25 07:05 | NUR ---
Patient received from medicaid analyst, resting comfortably in bed. No signs of acute distress noted, VS WNL. No verbalized or observed needs at this time. Blood sugar 101 this AM by medicaid analyst RN, no insulin coverage required. Discharge plan of care to be reviewed with housing case manager today. Will follow up discharge needs today. Safety and fall precautions maintained. Call light within reach.
[2017-06-25] MEDS: TIMOLOL MALEATE XE 0.5% OPHT 5 ML BOTTLE EACHEYE SCH (08:12)
[2017-06-25] MEDS: MAGNESIUM OXIDE 400 MG TABLET PO SCH ×2 (08:13→12:17)
[2017-06-25] MEDS: PROPRANOLOL HCL 40 MG TABLET PO SCH ×2 (08:13→12:20)
[2017-06-25] MEDS: MULTIVITAMINS,THERAPEUTIC TABLET PO SCH (08:13)
[2017-06-25] MEDS: ESCITALOPRAM OXALATE 10 MG TABLET PO SCH (08:13)
[2017-06-25] MEDS: AMLODIPINE 5 MG TABLET PO SCH (08:13)
[2017-06-25] MEDS: METFORMIN HCL 500 MG TABLET PO SCH (08:14)
[2017-06-25] MEDS: CALCIUM CARB/VITAMIN D 600-400 MG TABLET PO SCH (08:14)
[2017-06-25] MEDS: glipiZIDE 5 MG TABLET PO SCH (08:14)
[2017-06-25] MEDS: CHOLECALCIFEROL 1,000 UNIT TABLET PO SCH (08:14)
[2017-06-25] MEDS: HYDROCORTISONE 1% CREAM 30 GM TUBE TP SCH ×2 (08:14→13:31)
[2017-06-25] MEDS: VALSARTAN 160 MG TABLET PO SCH (08:14)
[2017-06-25 08:26] VITALS: BP 120/51
[2017-06-25] MEDS: DIVALPROEX 500 MG TABLET.DR PO SCH ×2 (08:46→12:17)
[2017-06-25 12:20] VITALS: BP 143/63
[2017-06-25] MEDS: INSULIN REGULAR, HUMAN 300 UNIT/3 ML VIAL SQ PRN (12:22)
--- NOTE | 2017-06-25 12:30 | NUR ---
PT GIVEN ACCU CHECK. BLOOD SUGAR AT 133. PT REFUSED INSULIN. EXPLAINED RISKS AND BENEFITS. WILL MONITOR FOR SS OF HYPERGLYCEMIA.
--- NOTE | 2017-06-25 16:00 | NUR ---
Discharge orders received to send patient back to prior ASH at [facility]. All information and belongings verified with patient, all discharge instructions given to patient. Information verified with [facility] director. Prescriptions to be verified and done with Liam's MD refrigeration service inspector. Will be sent to pharmacy electronically. Patient left unit on [facility] with ambulance personnel, HANS DE JESUS. All safety precautions maintained.
[2017-06-25] MEDS ORDERED: METF500T4 PO (16:50)
[2017-06-25] MEDS ORDERED: TRAZ-144 PO (16:50)
[2017-06-25] MEDS ORDERED: DIVA500T2 PO (16:50)
[2017-06-25] MEDS ORDERED: Magnesium Oxide PO (16:50)
[2017-06-25] MEDS ORDERED: ACET325T53 PO (16:50)
[2017-06-25] MEDS ORDERED: HYDR30CR10 TP (16:50)
[2017-06-25] MEDS ORDERED: CALC-11 PO (16:50)
[2017-06-25] MEDS ORDERED: MULT-24 PO (16:50)
[2017-06-25] MEDS ORDERED: GLIP5TAB13 PO (16:50)
[2017-06-25] MEDS ORDERED: PANT40TA2 PO (16:50)
[2017-06-25] MEDS ORDERED: CLON0.1T14 PO (16:50)
[2017-06-25] MEDS ORDERED: TIMO5SOL9 EACHEYE (16:50)
[2017-06-25] MEDS ORDERED: CHOL10002 PO (16:50)
[2017-06-25] MEDS ORDERED: HYDR25TA86 PO (16:50)
[2017-06-25] MEDS ORDERED: ESCI10TA PO (16:50)
[2017-06-25] MEDS ORDERED: PROP40TA7 PO (16:50)
[2017-06-25] MEDS ORDERED: QUET25TA PO ×2 (16:50)
[2017-06-25] MEDS ORDERED: AMLO5TAB2 PO (16:50)
[2017-06-25] MEDS ORDERED: LEVO150T PO (16:50)
[2017-06-25] MEDS ORDERED: VALS160T2 PO (16:50)
[2017-06-25] MEDS ORDERED: MAGN400T6 PO (16:55)
== END 2017-06-25 16:00 | disposition home health service (06) | DRG 949 ==
LOC: SA1 23:10 → EDBD 23:10
PROVIDERS: ADMIT Physical Medicine & Rehabilitation Pain Medicine; ATTEND Physical Medicine & Rehabilitation Pain Medicine
DX: S06.5X0D Traumatic subdural hemorrhage without loss of consciousness, subsequent encounter (principal); I50.32 Chronic diastolic (congestive) heart failure; D68.59 Other primary thrombophilia; G93.89 Other specified disorders of brain; I11.0 Hypertensive heart disease with heart failure; E83.42 Hypomagnesemia; T85.698A Other mechanical complication of other specified internal prosthetic devices, implants and grafts, initial encounter; M41.9 Scoliosis, unspecified; E11.9 Type 2 diabetes mellitus without complications; D50.9 Iron deficiency anemia, unspecified; W19.XXXD Unspecified fall, subsequent encounter; M80.031D Age-related osteoporosis with current pathological fracture, right forearm, subsequent encounter for fracture with routine healing; E89.0 Postprocedural hypothyroidism; M19.90 Unspecified osteoarthritis, unspecified site; R26.9 Unspecified abnormalities of gait and mobility; R27.0 Ataxia, unspecified; R74.0 Nonspecific elevation of levels of transaminase and lactic acid dehydrogenase [LDH]; F32.9 Major depressive disorder, single episode, unspecified; F41.9 Anxiety disorder, unspecified; Z87.440 Personal history of urinary (tract) infections; R29.6 Repeated falls; Z86.011 Personal history of benign neoplasm of the brain; Z87.891 Personal history of nicotine dependence; Z91.81 History of falling; Z96.641 Presence of right artificial hip joint
CPT/HCPCS: 36415; 83550; 83690; 83735; 84100; 85025; 92610; 97110; 97112; 97116; 97161; 97530; 97535; A4663; J1815; J3475; J3490; J3590; J7060